=== PATIENT | male | born 1935 | race Caucasian/White ===

== ENCOUNTER → 2017-11-03 | Outpatient (CLI) | payer MEDICARE ==
--- NOTE | 2017-11-03 12:26 | REP ---
Chest two views HISTORY: Hypertension Comparison: None The lungs are clear. The cardiac silhouette is enlarged. The pulmonary vasculature is normal in appearance. The bony structure is intact. IMPRESSION: Cardiomegaly. Signed by Frandy Ferguson MD 11/03/2017 12:18 P
[2017-11-03 13:16] LABS: MEAN CORPUSCULAR HEMOGLOBIN 35.1 pg (27.0-33.0); MEAN CORPUSCULAR HGB CONC 32.3 g/dl (32.0-36.5); MEAN CORPUSCULAR VOLUME 108.9 fl (80.0-96.0); PLATELET COUNT, AUTOMATED 126 10^3/uL (150-450); RED CELL DISTRIBUTION WIDTH 14.2 % (11.5-14.5); WHITE BLOOD COUNT 2.5 10^3/uL (4.0-10.0)
[2017-11-03 13:51] LABS: ALBUMIN 4.1 GM/DL (3.2-5.2); ALBUMIN/GLOBULIN RATIO 1.41 (1.00-1.93); ALKALINE PHOSPHATASE 61 U/L (45-117); ALT/SGPT 33 U/L (12-78); ANION GAP 9 MEQ/L (8-16); AST/SGOT 20 U/L (7-37); BILIRUBIN,TOTAL 0.6 MG/DL (0.2-1.0); BLOOD UREA NITROGEN 15 MG/DL (7-18); CALCIUM LEVEL 8.5 MG/DL (8.8-10.2); CARBON DIOXIDE LEVEL 28 MEQ/L (21-32); CHLORIDE LEVEL 104 MEQ/L (98-107); CREATININE FOR GFR 0.81 MG/DL (0.70-1.30); GLOMERULAR FILTRATION RATE > 60.0 (>35); GLUCOSE, FASTING 86 MG/DL (83-110); POTASSIUM SERUM 4.3 MEQ/L (3.5-5.1); SODIUM LEVEL 141 MEQ/L (136-145)
== END ==
LOC: M SMT 11:15
PROVIDERS: ATTEND Internal Medicine Cardiovascular Disease
DX: I44.0 Atrioventricular block, first degree (principal); I25.10 Atherosclerotic heart disease of native coronary artery without angina pectoris; I10 Essential (primary) hypertension

== ENCOUNTER → 2017-12-08 | Outpatient (REF) | payer MEDICARE ==
[2017-12-08 20:49] LABS: HEMATOCRIT 35.4 % (42.0-52.0)
[2017-12-08 21:24] LABS: IMMUNOGLOBULIN G 878 MG/DL (681-1648); IMMUNOGLOBULIN M 39.8 MG/DL (40-230); TOTAL PROTEIN 7.5 GM/DL (6.4-8.2)
[2017-12-08 22:15] LABS: REASON FOR REVIEW COMPREHENSIVE REVIEW; SLIDE REVIEW Report; SOURCE PERIPHERAL SMEAR
[2017-12-09 10:51] LABS: ALBUMIN 4.67 GM/DL (3.29-5.55); ALBUMIN % 62.2 % (55.8-66.1); ALPHA-1-GLOBULIN % 4.6 % (2.9-4.9); ALPHA-1-GLOBULINS 0.35 GM/DL (0.17-0.41); ALPHA-2-GLOBULINS % 8.9 % (7.1-11.8); BETA-1-GLOBULINS % 6.6 % (4.7-7.2); BETA-2-GLOBULINS % 5.7 % (3.2-6.5)
[2017-12-09 10:52] LABS: ALPHA-2-GLOBULINS 0.67 GM/DL (0.42-0.99); BETA-2-GLOBULINS 0.43 GM/DL (0.19-0.55)
[2017-12-09 11:36] LABS: VITAMIN B12 LEVEL 716 PG/ML (247-911)
[2017-12-10 18:58] LABS: PRETREATED FOLATE FOR RBCFOL 13.9 NG/ML; RBC FOLATE 824.6 NG/ML (280-791)
[2017-12-13 00:06] LABS: METHYLMALONIC ACID 207 nmol/L (0-378)
[2017-12-13 00:06] LABS: FREE KAPPA LIGHT CHAINS SERUM 21.7 mg/L (3.3-19.4); FREE LAMBDA LIGHT CHAINS SERUM 17.7 mg/L (5.7-26.3); HOMOCYST(E)INE SERUM 13.1 umol/L (0.0-15.0); KAPPA/LAMBDA RATIO SERUM 1.23 (0.26-1.65)
== END ==
LOC: M LAB REF 19:11
DX: D61.9 Aplastic anemia, unspecified (principal)
CPT/HCPCS: 84165

== ENCOUNTER 2018-01-24 15:11 | Day surgery (SDC) | payer MEDICARE ==
[2018-01-24] MEDS: PANTOPRAZOLE 40MG TAB (PROTONIX) PO ×2 (09:00)
[~2018-01-24 15:11] MED LIST: **UNRESOLVED NON-FORMULARY MED ORDER XX
[2018-01-24] MEDS ORDERED: LIDOCAINE 1% MDV 20ML VIAL SQ ×2 (15:21)
[2018-01-24] MEDS ORDERED: fentaNYL 100 MCG/2 ML INJECTION (J3010) As Ordered ×2 (16:09)
[2018-01-24] MEDS ORDERED: LIDOCAINE 2% INJ 100 MG/5 ML SDV (FOR ANES.) As Ordered ×2 (16:09)
[2018-01-24] MEDS ORDERED: PROPOFOL 200 MG/20 ML VIAL As Ordered ×4 (16:09→17:16)
[2018-01-24] MEDS ORDERED: MIDAZOLAM INJ 2 MG/2 ML VIAL (J2250) As Ordered ×2 (16:09)
[2018-01-24] MEDS: LR 1,000 ML IV ×4 (16:10→20:48)
[2018-01-24] MEDS: LIDOCAINE 1% SDV INJ 30 ML VIAL As Ordered ×2 (17:13)
[2018-01-24] MEDS ORDERED: ONDANSETRON 4MG/2ML VIAL (J2405) As Ordered ×2 (17:16)
[2018-01-24] MEDS ORDERED: ONDANSETRON 4MG/2ML VIAL (J2405) IV ×2 (18:15)
[2018-01-24] MEDS ORDERED: ACETAMINOPH W/CODEINE #3 TAB UD As Ordered ×2 (18:23)
[2018-01-24] MEDS: ACETAMINOPH W/CODEINE #3 TAB UD PO ×4 (18:35→23:09)
[2018-01-24] MEDS ORDERED: ACETAMINOPHEN TAB 650MG DOSE (2X325MG) PO ×2 (18:45)
[2018-01-24] MEDS: ATORVASTATIN 20 MG TAB PO ×2 (21:02)
[2018-01-24] MEDS: DULoxetine 30 MG CAP (CYMBALTA) PO ×2 (21:02)
[2018-01-24] MEDS: SINEMET 25-100 MG TAB PO ×2 (21:03)
[2018-01-24] MEDS: DONEPEZIL 5 MG TAB PO ×2 (21:03)
[2018-01-24] MEDS: CARVedilol 6.25 MG TAB PO ×2 (21:05)
[2018-01-24] MEDS: LISINOPRIL 10 MG TAB PO ×2 (21:09)
[2018-01-24] MEDS: MEMANTINE 5MG TABLET (NAMENDA) PO ×2 (21:32)
[2018-01-25] MEDS ORDERED: SLF 3 ML SYR IV ×2
[2018-01-25] MEDS: CEFAZOLIN SOD 1 GM in APPROPRIATE DILUENT 1 EA IV ×3 (01:34→16:20)
[2018-01-25] MEDS: LEVOTHYROXINE 125MCG TABLET (0.125MG) PO ×2 (05:14)
[2018-01-25] MEDS: SLF 3 ML SYR IV ×4 (05:15→14:13)
[2018-01-25] MEDS: ASPIRIN 81 MG CHEW TABLET PO ×2 (08:55)
[2018-01-25] MEDS: amLODIPine 5 MG TAB PO ×2 (08:56)
[2018-01-25] MEDS: MEMANTINE 5MG TABLET (NAMENDA) PO ×2 (08:56)
[2018-01-25] MEDS: PANTOPRAZOLE 40MG TAB (PROTONIX) PO ×2 (08:56)
[2018-01-25] MEDS: CARVedilol 6.25 MG TAB PO ×2 (08:56)
[2018-01-25] MEDS: SINEMET 25-100 MG TAB PO ×4 (08:57→16:07)
[2018-01-25] MEDS: LISINOPRIL 10 MG TAB PO ×2 (08:57)
[2018-01-25] MEDS: DULoxetine 30 MG CAP (CYMBALTA) PO ×2 (08:57)
[2018-01-25] MEDS: oxyBUTYnin *DITROPAN XL* 5 MG TABCR PO ×2 (17:32)
== END 2018-01-25 18:37 | disposition home or self-care (01) ==
LOC: M SDC 15:11 → M PCU 19:00
DX: I49.5 Sick sinus syndrome (principal); I44.0 Atrioventricular block, first degree; I44.7 Left bundle-branch block, unspecified; I49.3 Ventricular premature depolarization; I25.10 Atherosclerotic heart disease of native coronary artery without angina pectoris; I11.9 Hypertensive heart disease without heart failure; I35.9 Nonrheumatic aortic valve disorder, unspecified; I34.0 Nonrheumatic mitral (valve) insufficiency; I27.81 Cor pulmonale (chronic); R94.31 Abnormal electrocardiogram [ECG] [EKG]; E03.9 Hypothyroidism, unspecified; K21.9 Gastro-esophageal reflux disease without esophagitis; D61.9 Aplastic anemia, unspecified; M12.9 Arthropathy, unspecified; R48.2 Apraxia; G20 Parkinson's disease; R06.83 Snoring; G47.33 Obstructive sleep apnea (adult) (pediatric); N40.1 Benign prostatic hyperplasia with lower urinary tract symptoms; R32 Unspecified urinary incontinence; T88.59XD Other complications of anesthesia, subsequent encounter; Z88.5 Allergy status to narcotic agent; Z88.8 Allergy status to other drugs, medicaments and biological substances; Z79.899 Other long term (current) drug therapy; Z79.82 Long term (current) use of aspirin; Z86.14 Personal history of Methicillin resistant Staphylococcus aureus infection; Z87.891 Personal history of nicotine dependence; Z95.5 Presence of coronary angioplasty implant and graft; Z96.653 Presence of artificial knee joint, bilateral
CPT/HCPCS: 33208

== ENCOUNTER 2019-03-02 11:50 | Inpatient (IN) | payer MEDICARE ==
[~2019-03-02] VITALS: Ht 162.6 cm; Wt 98.5 kg
[2019-03-02 11:50] VITALS: BP 130/93
[~2019-03-02 11:50] MED LIST changes: -**UNRESOLVED NON-FORMULARY MED ORDER XX; +ALFU10TA2 PO; +AMLO5TAB6 PO; +AMMO12CR7 TOP; +ASPI81TA26 PO; +ATOR1TAB21 PO; +CARB25TA9 PO; +CARV12.5 PO; +CARV6.25 PO; +COLA100C5 PO; +DICL1GEL3 TOP; +DONETAB6 PO; +DULO1CAP2 PO; +DULO1CAP3 PO; +LISI-1046 PO; +LISI10TA4 PO; +MEMA1TAB2 PO; +MULT1TAB10 PO; +OMEG100011 PO; +OXYB10TA PO; +PANT40TA3 PO; +PREG50CA PO; +ROPI0.5T PO; +SYNT125T PO
[2019-03-02] MEDS ORDERED: PREG50CA PO (13:50)
[2019-03-02] MEDS ORDERED: PRAM0.126 PO (13:51)
[2019-03-02] MEDS ORDERED: LISI-1046 PO (14:03)
[2019-03-02] MEDS ORDERED: DOCUSATE SODIUM 100 MG CAP PO PRN (14:30)
[2019-03-02 14:51] LABS: BASO % 0.1 % (0.0-1.0); EOS % 0.4 % (0.0-3.0); HEMATOCRIT 33.8 % (42.0-52.0); HEMOGLOBIN 10.4 g/dl (13.5-17.5); LYMPH # 2.2 10^3/uL (1.5-4.5); LYMPH % 29.8 % (24.0-44.0); MEAN CORPUSCULAR HEMOGLOBIN 36.2 pg (27.0-33.0); MEAN CORPUSCULAR HGB CONC 30.8 g/dl (32.0-36.5); MONO # 1.3 10^3/uL (0.0-0.8); MONO % 17.9 % (0.0-5.0); NEUTROPHILS # 3.7 10^3/uL (1.8-7.7); NEUTROPHILS % 50.2 % (36.0-66.0); RED BLOOD COUNT 2.87 10^6/uL (4.30-6.10); WHITE BLOOD COUNT 7.4 10^3/uL (4.0-10.0)
[2019-03-02 14:54] LABS: PLATELET COUNT, AUTOMATED 40 10^3/uL (150-450)
[2019-03-02 15:00] LABS: INR 2.45; PARTIAL THROMBOPLASTIN TIME 40.9 SECONDS (25.4-37.6); PROTHROMBIN TIME 27.1 SECONDS (12.1-14.4)
[2019-03-02 15:02] LABS: MEAN CORPUSCULAR VOLUME 117.8 fl (80.0-96.0); PLATELET COUNT, AUTOMATED 41 10^3/uL (150-450)
[2019-03-02 15:03] LABS: D-DIMER QUANT 2795.03 ng/ml (<500)
--- NOTE | 2019-03-02 15:04 | REP ---
Clinical: Shortness of breath. Comparison: 01/25/2018. Findings: Cardiomegaly is appreciated along with pulmonary vascular congestion/interstitial edema including cephalization, indistinct perihilar vasculature, increased interstitial markings, as well as perihilar to lower lobe opacities suggesting elements of atelectasis and layering effusions. No pneumothorax. Evidence for prior sternotomy, pacemaker and CABG remaining stable. Skeletal structures intact. Impression: Cardiomegaly with findings to suggest pulmonary vascular congestion and interstitial edema including bibasilar opacities and pleural effusions. Electronically Signed by Rashid Cook MD 03/02/2019 02:55 P
[2019-03-02 15:05] LABS: ANISOCYTOSIS 2+; OVALOCYTES 1+; TEAR DROP CELLS 1+
[2019-03-02 15:06] LABS: PLATELET ESTIMATE MARKED DECREASE (NORMAL)
[2019-03-02 15:20] VITALS: BP 132/74
[2019-03-02 15:30] LABS: ERYTHROCYTE SEDIMENTATION RATE 74 mm/hr (0-20)
[2019-03-02] MEDS ORDERED: VANCOMYCIN HCL 1,000 MG, VIAL MATE ADAPTER 1 EACH in D5W 250 ML IV ONE ×2 (15:45→20:00)
[2019-03-02] MEDS ORDERED: FUROSEMIDE 20 MG/2 ML VIAL (J1940) IV ONE (15:45)
--- NOTE | 2019-03-02 16:04 | ECGEPIP ---
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
[2019-03-02 16:18] LABS: FREE THYROXINE INDEX 1.9 % (1.4-3.8); THYROID STIMULATING HORMONE 9.65 uIU/ML (0.358-3.740); THYROXINE (T4) 5.7 UG/DL (4.5-12.0)
[2019-03-02] MEDS ORDERED: PILL CRUSHER/CUTTER 1 EACH XX PRN (16:45)
[2019-03-02 16:47] LABS: ALBUMIN 2.8 GM/DL (3.2-5.2); BILIRUBIN,TOTAL 1.1 MG/DL (0.2-1.0); C REACTIVE PROTEIN QUANTITATIV 11.8 MG/DL (0.00-0.30); CREATININE FOR GFR 1.36 MG/DL (0.70-1.30); GLOMERULAR FILTRATION RATE 53.1 (>35); MB/CK RELATIVE INDEX 5.32 (< OR =4); POTASSIUM SERUM 4.7 MEQ/L (3.5-5.1); TOTAL PROTEIN 7.2 GM/DL (6.4-8.2); TROPONIN I 0.13 NG/ML (< 0.10)
[2019-03-02] MEDS ORDERED: SINEMET 25-100 MG TAB PO SCH (17:00)
--- NOTE | 2019-03-02 17:09 | NUR ---
Pt presents with moderate-severe oropharyngeal phase dysphagia. Poor/slow bolus control, cough throughout exam, decreased oral ROM and strength. Unable to fully determine safest/least restrictive diet without instrumental. MD please consider modified barium swallow study (cookie swallow). Recommend: Puree solids and honey thick liquids. Thorough oral care before and after every meal or med pass. Addendum: 03/02/19 at 1712 by WILMAN TOLEDO [facility] Amended: Links added.
[2019-03-02 20:00] VITALS: BP 136/74
[2019-03-02] MEDS ORDERED: DULoxetine 30 MG CAP (CYMBALTA) PO SCH (21:00)
[2019-03-02] MEDS ORDERED: rOPINIRole 0.25 MG TAB(REQUIP) PO SCH (21:00)
[2019-03-02] MEDS ORDERED: PREGABALIN 50 MG CAP (LYRICA) PO SCH (21:00)
[2019-03-02] MEDS ORDERED: CARVedilol 12.5 MG TAB PO SCH (21:00)
[2019-03-02] MEDS ORDERED: LISINOPRIL *2.5 MG* TAB PO SCH (21:00)
[2019-03-02] MEDS ORDERED: ATORVASTATIN 20 MG TAB PO SCH (21:00)
[2019-03-02] MEDS ORDERED: MEMANTINE 5MG TABLET (NAMENDA) PO SCH (21:00)
[2019-03-02] MEDS ORDERED: PRAMIPEXOLE (MIRAPEX) 0.125 MG TAB PO SCH (21:00)
[2019-03-02] MEDS ORDERED: DONEPEZIL 5 MG TAB PO SCH (21:00)
[2019-03-02 21:30] LABS: PROLACTIN 6.2 NG/ML (2.1-17.7)
[2019-03-02 21:41] VITALS: BP 122/76
--- NOTE | 2019-03-02 21:44 | HPE ---
DATE OF ADMISSION: 03/02/2019 The patient is transferred from [facility] to [facility] due to pancytopenia at 's request for [facility]. CHIEF COMPLAINT: Generalized weakness. Found to have Methicillin-Susceptible Staphylococcus aureus (MSSA) bacteremia, rule out for endocarditis and had been treated with Nafcillin and Rifampin at the [facility] when he started developing severe pancytopenia. HISTORY OF PRESENT ILLNESS: This is an 83-year-old male with past medical history significant for advanced Parkinson's disease with expressive aphagia for the past 4 years, coronary artery disease, status post 4 vessel coronary artery bypass graft and angioplasty, multiple stent placement, non-ST segment elevation myocardial infarction (NSTEMI), dyslipidemia, septic arthritis, status post arthroplasty, hypothyroidism, cervical spine fusion, vasectomy, skin cancer removal and pacemaker implantation for sick sinus syndrome was in his usual state of health and living at home with his and usually able to walk with a walker until March 02, 2019 when the patient was unable to stand and walk at that time, otherwise called [facility] (EMS) which brought them to [facility] emergency room. At [facility], the patient was found to have a temperature of 104.5, systolic pressure in the 70s, was given rectal Tylenol and was diagnosed with sepsis and troponin leak. The patient's called 911 and the patient was taken to [facility] in [place], where he was found positive troponin, temperature of 104.5, sepsis from presumed aspiration pneumonia. The patient was then subsequently transferred to [facility] in [place] due to concerns of non-ST segment elevation myocardial infarction. At that time, the patient had a white count of 4.8, neutrophil count of 64, troponin was elevated to 5.3, with a proBNP of 98.48. Chest x-ray was suspicious for pneumonia versus congestive heart failure. 12-lead electrocardiogram (EKG) had no ST elevation. He was started on IV heparin, did receive a dose of Lasix and Rocephin and azithromycin. He was then subsequently transferred to [facility] for evaluation for acute coronary syndrome. The patient was felt to be suffering from staphylococcus aureus bacteremia with suspected troponin leak due to sepsis, as well as aspiration pneumonia. He underwent transesophageal echocardiogram (VIKAS) to rule out vegetation on 02/09/2019, which showed no evidence of vegetation of the valves in the pacemaker lead. Ejection fraction was noted to be 25% to 30%, with severe mitral aortic and tricuspid regurgitation. Transthoracic echocardiogram showed an ef1 of 20% to 25% with moderate aortic stenosis with TOMÁS 1.1 and mean gradient of 16 with moderate mitral and tricuspid insufficiency with RV pressure estimated at 46 mmHg. The patient has been nonverbal, but able to communicate with his by using yes or no questions and the patient putting a thumb's up or a thumb's down to answer. Subsequent blood culture after being started on Nafcillin and Rifampicin were negative. Per infectious disease at [facility], the patient is to continue with antibiotics until March 16, 2019 with weekly complete blood counts (CBCs), sedimentation rate and erythrocyte sedimentation rate. The patient was then transitioned to acute rehabilitation for strengthening and conditioning. According to the , acute rehabilitation physician had decreased the patient's medications due to increased obtundation. His Lyrica in the evening was discontinued and since the patient was on Mirapex and Ropinirole, Ropinirole was discontinued. The patient was much more lethargic and less responsive, therefore, the rehabilitation physician has resumed the Ropinirole and discontinued the Mirapex. Due to worsening pancytopenia, the patient's had requested the patient to be transferred from acute rehabilitation facility in [place] to [facility] for further evaluation. She has noted that his mentation has suffered and he is less responsive, hoping to get a neurological evaluation at [facility] for his pancytopenia. She is requesting a hematology work up and referral while at the [place] rehabilitation facility. The patient's denied any recent fevers. Swallow evaluation has been done initially with mechanical soft and honey thickened, but lately, the patient is tolerating pudding thick and puree diet with clear water. PAST MEDICAL HISTORY: Parkinson's disease, advanced expressive aphagia for four years, coronary artery bypass graft (CABG) status post four vessel coronary artery bypass graft (CABG) and angioplasty, non-ST segment elevation myocardial infarction (NSTEMI), history of dyslipidemia, septic arthritis, status post arthroplasty, sick sinus syndrome requiring pacemaker, hypothyroidism. PAST SURGICAL HISTORY: Four vessel coronary artery bypass graft (CABG), angioplasty, left cataract surgery, bilateral total knee replacements, cervical spine fusion, vasectomy, skin cancer removal, pacemaker implantation due to sick sinus syndrome done by Dr. Monteiro. SOCIAL HISTORY: lives with . He uses a walker. Usually to ambulate. Recently, has been much more debilitated. The patient used to smoke pipe, quit about 30 years ago. 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 The patient is DO NOT INTUBATE, DO NOT RESUSCITATE. He previously used to drink wine with dinner. No recreational drug use. FAMILY HISTORY: Mother with brain aneurysm. Brother age 85 with occupational induced chronic obstructive pulmonary disease (COPD). REVIEW OF SYSTEMS: Could not be obtained as the patient is nonverbal. The patient's provided much of the history, presented in the history of present illness. 12-point system unable to be obtained at this time. PHYSICAL EXAMINATION: Temperature is 95.6, pulse is 67, respiratory rate 28, blood pressure 130/93, 100% on pulse oximetry on room air. GENERAL: The patient is nonverbal. He is following commands. Squeezes the 's hand to answer yes or no. Pupils are round, reactive to light accommodation. Extraocular muscles are intact. No oral thrush. Moist mucous membranes. No jugular venous distension or thyromegaly or cervical lymphadenopathy. Anicteric sclerae. No jaundice. HEART: S1, S2 with a left sternal border systolic ejection murmur. Hyperdynamic impulse of the apex. LUNGS: Fair and equal bilaterally. No wheezing, rales. Diminished breath sounds. GASTROINTESTINAL (GI): Soft, nontender, nondistended. Positive bowel sounds in all four quadrants. EXTREMITIES: Capillary refill less than 3 seconds. No calf tenderness. No pitting edema bilaterally. Cool extremities, but pink in color. CENTRAL NERVOUS SYSTEM: The patient is nonverbal. He is moving all of his extremities. He is able to follow commands. He has some rigidity with supination. Electrocardiogram (EKG) is pending. Complete blood count (CBC), metabolic panel, liver function tests, cardiac markers, BNP are all pending. Arterial blood gas is pending. ASSESSMENT AND PLAN: This 83-year-old male presented to [facility] per 's request due to ongoing pancytopenia, thought to be secondary to rifampin and Nafcillin being given for Methicillin-Susceptible Staphylococcus aureus (MSSA) bacteremia at the [place] acute rehabilitation. The patient had been in his usual state of health on January 30, 2019 when he was found to have extreme debility, difficulty ambulating with positive Methicillin-Susceptible Staphylococcus aureus (MSSA) in the blood culture, underwent transesophageal echocardiogram (VIKAS), which was negative for endocarditis and was subsequently transferred to acute rehabilitation after being evaluated for positive troponins thought to be secondary to sepsis and possible aspiration pneumonia. The patient is being admitted in inpatient for the following issues: 1. Pancytopenia thought to be secondary to Ancef and rifampin. Will check a peripheral blood smear, check a heparin-induced thrombocytopenia panel for low platelets, avoid heparin products. Compression stockings for deep vein thrombosis (DVT) prophylaxis. Consult hematology/oncology. May need bone marrow biopsy if not due to have the antibiotics. Defer to infectious disease for antibiotic changes. 2. Methicillin-Susceptible Staphylococcus aureus (MSSA) bacteremia of unknown source. Thought initially to be due to aspiration pneumonia. However, culture results are still being requested. At this time, will repeat the chest x-ray, 2-D echocardiogram, as well as complete blood count (CBC), metabolic panel, ESB, C-reactive protein (CRP) and blood cultures. Transesophageal echocardiogram was negative for endocarditis. Monitor complete blood count (CBC), C-reactive protein (CRP) and sedimentation rate. Depending on choice of antibiotics, will monitor complete blood count (CBC) to determine the need for Neupogen if white count is less than 500. The patient currently is afebrile, but is hypothermic. 3. Advanced Parkinson's disease. The patient usually sees Dr. Walters from [facility]. Had acute rehabilitation. [facility] physician has changed his medications according to the patient's . I have consulted Dr. Jama, neurologist insulation and flooring assembler this evening to adjust the patient's medications due to worsening mental status changes. The patient is nonverbal at baseline. Mental status changes most likely due to acute infection and sepsis. 4. History of abnormal cardiac markers with possible myocardial infarction (MS) with history of atherosclerotic disease of elim ira coronary vessels. Coronary artery bypass graft (CABG) with multivessel with four vessel coronary artery bypass graft. The patient had been treated supportively with intravenous heparin drip at [facility]. The patient did not receive any additional stenting. Will obtain cardiac markers and place the patient on telemetry. Repeat echocardiogram. He has a known history of ischemic cardiomyopathy. Ejection fraction of 20% to 25%. He is currently DO NOT RESUSCITATE with a healthcare proxy being the . 5. Sick sinus syndrome, status post pacer with history of Methicillin-Susceptible Staphylococcus aureus (MSSA), the patient currently has a DO NOT RESUSCITATE. He is currently being treated with for weeks of IV antibiotics from January 30 to March 16. 6. Aspiration pneumonia. Refer to infectious disease for antibiotic choice. The patient has been fully treated for two weeks at [facility]. Repeat chest x-ray and repeat the swallow evaluation. 7. Expressive aphasia for the past four years due to advanced Parkinson's disease. Magnetic Resonance Imaging (MRI) of the brain once the patient is stable to consultation. 8. Hypothyroidism. Resume home Synthroid. 9. Dyslipidemia. Resume statin. 10. MDS. Resumed home medications. 11. History of congestive heart failure, does not appear to be decompensated at this time. He appears euvolemic. Strict input and output, daily weights and fluid restriction. Resume on home medications.
--- NOTE | 2019-03-02 23:03 | PHACANCOPD ---
PHARMACY VANCOMYCIN DOSING Pt Demographics Demographics Patient Age:83 , Weight:98.500 , Gender: male Adjusted Body Weight Events Past 24 Hours Events Past 24 Hours: NO: Dialysis, Diuretic Therapy, Change in CrCl, Fever, Elevation in WBC, Pending Diagnostics, Pending Procedures, Other Vancomycin Vancomycin Target Ranges: 10-20 mcg/ml Vancomycin Load Y/N: Yes Load Dose Date Time Vancomycin Load Dose: 2GM Date: 03/02/19 Time: 16:30- 2030 Vancomycin Dose Date: 03/03/19. Current Vancomycin Dose: [VANCO 1GM IV Q12H (starting at 8AM] Intermittent Dosing?: No Labs Labs Laboratory Tests 03/02/19 14:29 Red Blood Count 2.87 L, Mean Corpuscular Volume 117.8 H, Mean Corpuscular Hemoglobin 36.2 H, Mean Corpuscular Hemoglobin Concent 30.8 L, Red Cell Distribution Width 21.2 H, Neutrophils (%) (Auto) 50.2, Lymphocytes (%) (Auto) 29.8, Monocytes (%) (Auto) 17.9 H, Eosinophils (%) (Auto) 0.4, Basophils (%) (Auto) 0.1, Neutrophils # (Auto) 3.7, Lymphocytes # (Auto) 2.2, Monocytes # (Auto) 1.3 H, Eosinophils # (Auto) 0.0, Basophils # (Auto) 0.0 03/02/19 14:30 Calcium Level 8.0 L, Aspartate Amino Transf (AST/SGOT) 255 H, Alanine Aminotransferase (ALT/SGPT) 354 H, Total Creatine Kinase 79, Alkaline Phospha tase 171 H, Total Bilirubin 1.1 H, Total Protein 7.2, Albumin 2.8 L Micro Microbiology 03/02/19 Blood Culture, Received Pending 03/02/19 Blood Culture, Received Pending 03/02/19 Blood Culture, Received Pending Creatinine Clearance Date:03/02/19. Creatinine Clearance: [>50ml/min]. Assessment and Plan Maintaining Current Dose?: Yes Reason for dose change: No Dose Change Pharmacist Note Pharmacist Note Date: 03/02/19. PharmD note: VANCO LOAD DOSE OF 2GM ACHIEVED FROM 16:30-20:30HRS WE WILL CONTINUE WITH VANCO 1GM IV Q12H FOR NOW WHILE KEEPING A CLOSE EYE ON HIS RF. WE WILL ORDER A VANCO TROUGH WHEN HE IS AT STEADY STATE. KRISHNA DUNN PHARMACY Mar 02, 2019 23:03
[2019-03-03] VITALS: BP 98/64
--- NOTE | 2019-03-03 00:32 | CR ---
DATE OF CONSULTATION: 03/02/2019 INFECTIOUS DISEASE CONSULTATION Asked to consult by Dr. Eng for followup on a patient with Staphylococcus aureus bacteremia, methicillin-sensitive Staphylococcus aureus (MSSA) diagnosed a month ago in [facility] in [place]. HISTORY OF PRESENT ILLNESS: Mr. Walton is an 83-year-old gentleman who was admitted to [facility] in [place] with a fever of 105 about a month ago. He was found to have Staphylococus aureus bacteremia, MSSA, and was treated with IV antibiotics for a couple weeks. According to , he was on cefazolin every 8 hours and rifampin. He was then transferred with a peripherally inserted central catheter (PICC) line to [facility] for [facility] and was progressively doing better until 2 days prior to admission when she had noticed that he was less active, less able to do his baseline activities, usually able to do it and was having some attacks of staring without responding to her. He also started to become thrombocytopenic and therefore there was concern of medication side effects and rifampin was discontinued initially, then cefazolin. The patient has not had any recent fevers or chills. No nausea, vomiting or diarrhea. No abdominal pain that he has complained of. Transesophageal echocardiogram was done on 02/09/2019 at [facility], which showed no evidence of vegetation of the valves or the pacemaker lead. Ejection fraction was noted to be 25-30% with severe aortic and tricuspid regurgitation. Transthoracic echocardiogram showed an ejection fraction of 25% with moderate aortic stenosis. The patient was supposed to continue IV antibiotics until 03/16/2018, which would be 6 weeks from negative cultures. Because of the mental status changes, the weakness and the thrombocytopenia, his asked for him to be transferred to [facility] for an acute hospitalization as she wanted him to be closer to his primary care providers, including Dr. Monteiro from cardiology and hematology-oncology who manage his myelodysplastic disorder. PAST MEDICAL HISTORY: His past medical history is significant for Parkinson's disease with expressive aphasia for which he sees Dr. Walters, coronary artery disease status post CABG and angioplasty, non-ST elevation myocardial infarction (DE), follows up with Dr. Monteiro, dyslipidemia, history of methicillin-resistant Staphylococcus aureus (MRSA) bilateral prosthetic joint infection in 2008 after he had bilateral total knee replacement done for which he required 3 months of IV vancomycin, following which he had new total prosthesis placed a year later. Sick sinus syndrome, hypothyroidism. PAST SURGICAL HISTORY: CABG, left cataract surgery, bilateral total knee replacement in 2009, followed by bilateral infections of his knee prosthesis and removal with cement spacer placed and replacement revision arthroplasty, skin cancer, pacemaker implantation in [address] Monteiro for sick sinus syndrome. SOCIAL HISTORY: He is , lives with his . He uses a walker at home. He is able to ambulate and verbalizes with his pretty decently. He used to smoke a pipe, quit 30 years ago. He is retired. He is DO NOT INTUBATE/DO NOT RESUSCITATE (DNI/DNR). FAMILY HISTORY: Mother of a brain aneurysm, brother at age of 85, COPD. REVIEW OF SYSTEMS: He is having worsening mental status, difficulty verbalizing, does not seem to be in any pain. No nausea, vomiting or diarrhea. No cough. Increasing edema and shortness of breath. PHYSICAL EXAM: Temperature is 95.6, pulse 67, respirations 28, blood pressure 130/93, oxygen saturation (O2 sat) 100% on room air. General appearance: The patient did not verbalize anything. He did stutter some muffled words. Heart: Normal S1, S2 with a systolic ejection murmur best heard at the left upper sternal border. No rubs or gallops. Lungs: Diminished breath sounds at the bases. No wheezes or rhonchi. Abdomen: Obese, soft, nontender. No hepatosplenomegaly. Genitourinary (): Normal for age. Zhou catheter in place with yellow urine. Extremities: +1 pitting edema bilaterally. He has bilateral knee replacement scars, well healed. He has another incision of the right leg anteriorly and posteriorly, site of previous infection. Neurologic Exam: Could not be examined. The patient has a blank stare. He is stiff when trying to move to be examined. LABORATORY DATA: White count 7.4, hemoglobin 10.4, hematocrit 33.8, platelets 41, 50% neutrophils, 29% lymphocytes, 18% monocytes. ESR 74. Sodium 143, potassium 4.7, chloride 115, bicarbonate 16, BUN 74, creatinine 1.36, glucose 87, lactic acid 4, repeat was 4.9, AST 255, ALT 354, alkaline phosphatase 171, calcium 8, bilirubin 1.1, TSH 9.65, CRP 11.8, BNP 19,516, albumin 2.8, free T4 of 1.9, T4 of 5.7, prolactin 6.2. Blood cultures, three sets, were ordered at 1348 hours, 1429 hours and 1918 hours; pending. MEDICATIONS: Aspirin 81 mg by mouth daily, duloxetine 30 mg daily, multivitamin one tablet daily, Protonix 40 mg by mouth daily, vancomycin 1 gram IV every 12 hours, levothyroxine 125 mcg by mouth daily, atorvastatin 20 mg by mouth nightly, Coreg 12.5 mg by mouth twice a day, duloxetine 60 mg by mouth nightly, Mirapex 0.125 mg by mouth twice a day, Requip 0.5 mg by mouth twice a day, Namenda 10 mg by mouth twice a day, Aricept 10 mg by mouth nightly, lisinopril 2.5 mg by mouth twice a day, levadopa two tablets at 0800 hours, 1100 hours, 1400 hours and 1700 hours (8, 11, 14 and 17) and Colace 100 mg by mouth as needed. Chest x-ray, PA and lateral, shows cardiomegaly with pulmonary vascular congestion, interstitial edema including bibasilar opacities and pleural effusions. Electrocardiogram showed electronic ventricular pacer, sinus rhythm, left atrial enlargement. IMPRESSION: This is an 83-year-old gentleman who was admitted a month ago to [facility], with Staphylococcus aureus bacteremia, was being treated with IV cefazolin and rifampin, has developed abnormal liver function tests and thrombocytopenia with worsening mental status. He has deteriorated clinically and physically; he has not been able to do as much with mobility. He most likely has a drug reaction causing his thrombocytopenia, whether related to beta-lactams or rifampin.; these have both been held. He has been afebrile and clinically does not look septic, but there is concern for his lactic acidosis. The patient seems to have congestive heart failure. His BNP is elevated. He has pitting edema, and he has increasing shortness of breath. PLAN: As far as thrombocytopenia and abnormal liver function tests are concerned, possibly related to rifampin versus beta-lactam, I would suggest discontinuing both and finishing his treatment with vancomycin for 2 weeks until 03/16/2019. I am concerned that he may not need that dose of vancomycin 1 gram every 12 hours to him based on his age/ Creatininie. Suggest diuresis. His BMP is elevated. He has pitting edema. He was given 20 mg of IV Lasix times one dose but nothing since then. Obtain echocardiogram to follow up on possibility of endocarditis even though transesophageal echocardiogram (VIKAS) was negative. He could have pacer lead infection that has been missed on VIKAS initially. Zhou catheter was recently placed due to urinary retention during this hospitalization. I am not sure if the patient has had a trial for removal, but if not, the patient should be considered for trial of removal of catheter as he is at risk of recurrent urinary tract infection. Consider consultation with Dr. Monteiro who has been his filter cloth maker for many years to help with management of congestive heart failure. Consult with hematology who have seen him for his mild dysplastic syndrome, although this is not his myelodysplasia as usually he has leukopenia and not thrombocytopenia. This is medication side effect. Obtain abdominal ultrasound, as his liver function tests are elevated, to rule out any possibility of seeding to the liver from bacteremia. Blood cultures times three sets were obtained and will be followed up Thank you for consultation. NEVA
--- NOTE | 2019-03-03 03:14 | IPNPDOC ---
Date Seen The patient was seen on 03/03/19. Progress Note INTERIM PROGRESS NOTE: Was called my patient's nurse around 0300 regarding patient's low BP (80s systolic by doppler) that did not improve with albumin infusion and reported fluid overload with labored breathing and cough. Dr. Juárez and I went to the bedside to asses the patient. Physical exam: Temp 96.6, BP 80 systolic by doppler, HR 78, O2 95% RA GEN: laying in breath, labored breathing, asleep Heart: Normal S1/S2 with systolic ejection murmur in LUSB Lungs: Diminished breath sounds in all garcia. Crackles are heard from the bases up to middle lobe bilaterally Extremities: 3+ pitting edema in legs bilaterally, LUE with 2+ pitting edema, RUE non-edematous with PICC line in place Abd: soft, +BS, nontender The patient's was by the bedside. We had a discussion regarding the patien t's prognosis, and escalation of care was offered, including transfer of the patient to the ICU and placement of a central like for vasopressor therapy. The patient's decided to pursue comfort measures at this time. It was decided that there would be no escalation of care and the patient would be continually monitored with comfort measures in place. The patient's expressed understanding. VS, I&O, 24H, Fishbone Vital Signs/I&O Vital Signs Date Time Temp Pulse Resp B/P (MAP) Pulse Ox O2 Delivery O2 Flow Rate FiO2 03/03/19 00:00 96.6 75 28 98/64 (75) 95 I&O- Last 24 Hours up to 6 AM 03/03/19 06:00 Intake Total 270 ml Output Total 675 ml Balance -405 ml Laboratory Data 24H LABS Laboratory Tests 2 03/02/19 14:29: Immature Granulocyte % (Auto) 1.6, White Blood Count 7.4, Red Blood Count 2.87L, Hemoglobin 10.4L, Hematocrit 33.8L, Mean Corpuscular Volume 117.8H, Mean Corpuscular Hemoglobin 36.2H, Mean Corpuscular Hemoglobin Concent 30.8L, Red Cell Distribution Width 21.2H, Platelet Count 41L, Neutrophils (%) (Auto) 50.2, Lymphocytes (%) (Auto) 29.8, Monocytes (%) (Auto) 17.9H, Eosinophils (%) (Auto) 0.4, Basophils (%) (Auto) 0.1, Neutrophils # (Auto) 3.7, Lymphocytes # (Auto) 2.2, Monocytes # (Auto) 1.3H, Eosinophils # (Auto) 0.0, Basophils # (Auto) 0.0, Nucleated Red Blood Cells % (auto) 1.8H, Differential Slide Review Report, Platelet Estimate MARKED DECREASE, Immature Platelet Fraction 9.3, Anisocytosis 2+, Macrocytosis 3+, Tear Drop Cells 1+, Ovalocytes 1+, Peripheral Blood Smear Path Consult PERIPHERAL SMEAR, Erythrocyte Sedimentation Rate 74H, Prothrombin Time 27.1H, Prothromb Time International Ratio 2.45, Activated Partial Thromboplast Time 40.9H, Fibrinogen 522H, D-Dimer, Quantitative 2795.03H 03/02/19 14:30: Anion Gap 12, Glomerular Filtration Rate 53.1, Lactic Acid Level 4.0*H, Blood Urea Nitrogen 74H, Creatinine 1.36H, Sodium Level 143, Potassium Level 4.7, Chloride Level 115H, Carbon Dioxide Level 16L, Calcium Level 8.0L, Aspartate Amino Transf (AST/SGOT) 255H, Alanine Aminotransferase (ALT/SGPT) 354H, Total Creatine Kinase 79, Alkaline Phosphatase 171H, Total Bilirubin 1.1H, Total Protein 7.2, Albumin 2.8L, Creatine Kinase MB 4.0H, Creatine Kinase MB Relative Index 5.32H, Troponin I 0.13H, C-Reactive Protein, Quantitative 11.80H, BJ-Onv-Z-Type Natriuretic Peptide 36339Q, Albumin/Globulin Ratio 0.64L, Thyroid Stimulating Hormone (TSH) 9.650H, Free Thyroxine Index 1.9, Thyroxine (T4) 5.7, Triiodothyronine (T3) Uptake 34, Prolactin 6.2 03/02/19 19:18: Lactic Acid Followup at 4 Hours 4.9*H 03/02/19 21:46: Urine Color YELLOW, Urine Appearance HAZY, Urine pH 5.0, Urine Specific [place] 1.010, Urine Protein 1+H, Urine Glucose (UA) NEGATIVE, Urine Ketones NEGATIVE, Urine Blood 3+H, Urine Nitrite NEGATIVE, Urine Bilirubin NEGATIVE, Urine Urobilinogen 0.2, Urine Leukocyte Esterase NEGATIVE, Urine WBC (Auto) 1, Urine RBC (Auto) 54H, Urine Hyaline Casts (Auto) 23, Urine Bacteria (Auto) 1+H, Urine Squamous Epithelial Cells 0, Urine Amorphous Sediment SMALLH, Urine Mucus (Auto) SMALL, Urine Sperm (Auto) 03/03/19 00:18: Lactic Acid Level 2.7*H CBC/BMP Laboratory Tests 03/02/19 14:29 Red Blood Count 2.87 L, Mean Corpuscular Volume 117.8 H, Mean Corpuscular Hemoglobin 36.2 H, Mean Corpuscular Hemoglobin Concent 30.8 L, Red Cell Distribution Width 21.2 H, Neutrophils (%) (Auto) 50.2, Lymphocytes (%) (Auto) 29.8, Monocytes (%) (Auto) 17.9 H, Eosinophils (%) (Auto) 0.4, Basophils (%) (Auto) 0.1, Neutrophils # (Auto) 3.7, Lymphocytes # (Auto) 2.2, Monocytes # (Auto) 1.3 H, Eosinophils # (Auto) 0.0, Basophils # (Auto) 0.0 03/02/19 14:30 Calcium Level 8.0 L, Aspartate Amino Transf (AST/SGOT) 255 H, Alanine Aminotransferase (ALT/SGPT) 354 H, Total Creatine Kinase 79, Alkaline Phosphatase 171 H, Total Bilirubin 1.1 H, Total Protein 7.2, Albumin 2.8 L Microbiology Microbiology 03/02/19 Blood Culture, Received Pending 03/02/19 Blood Culture, Received Pending 03/02/19 Blood Culture, Received Pending GME ATTESTATION GME ATTESTATION My faculty preceptor for this patient encounter was physically present during the encounter and was fully available. All aspects of the patient interview, examination, medical decision making process, and medical care plan development were reviewed and approved by the faculty preceptor. The faculty preceptor is aware and concurs with the plan as stated in the body of this note and will attest to such by his/her cosignature. MILEY SHAFER MD Mar 03, 2019 03:14
[2019-03-03 04:00] VITALS: BP_SYST 96
[2019-03-03 05:50] LABS: BASO % 0.1 % (0.0-1.0); EOS % 0.2 % (0.0-3.0); HEMATOCRIT 27.2 % (42.0-52.0); HEMOGLOBIN 8.5 g/dl (13.5-17.5); LYMPH # 0.9 10^3/uL (1.5-4.5); LYMPH % 7.4 % (24.0-44.0); MEAN CORPUSCULAR HEMOGLOBIN 36.2 pg (27.0-33.0); MEAN CORPUSCULAR HGB CONC 31.3 g/dl (32.0-36.5); MEAN CORPUSCULAR VOLUME 115.7 fl (80.0-96.0); MONO # 1.5 10^3/uL (0.0-0.8); MONO % 12.9 % (0.0-5.0); NEUTROPHILS # 9.3 10^3/uL (1.8-7.7); PLATELET COUNT, AUTOMATED 35 10^3/uL (150-450); RED BLOOD COUNT 2.35 10^6/uL (4.30-6.10)
[2019-03-03] MEDS ORDERED: LEVOTHYROXINE 125MCG TABLET (0.125MG) PO SCH (06:00)
[2019-03-03 06:11] LABS: CALCIUM LEVEL 7.5 MG/DL (8.8-10.2); CREATININE FOR GFR 1.32 MG/DL (0.70-1.30); POTASSIUM SERUM 4.1 MEQ/L (3.5-5.1)
[2019-03-03 07:39] LABS: VANCOMYCIN RANDOM 23.4 UG/ML
[2019-03-03 08:00] VITALS: BP 100/56
[2019-03-03] MEDS ORDERED: VANCOMYCIN HCL 1,000 MG, VIAL MATE ADAPTER 1 EACH in D5W 250 ML IV SCH ×2 (08:00→18:00)
[2019-03-03] MEDS ORDERED: SCOPOLAMINE 1MG TRANSDERMAL PATCH TOP PRN (08:15)
[2019-03-03] MEDS ORDERED: ONDANSETRON 4MG/2ML VIAL (J2405) IV PRN (08:15)
--- NOTE | 2019-03-03 08:38 | REP ---
CT Head without contrast HISTORY: Altered mental status COMPARISON: None Areas of decreased attenuation are present in the periventricular white matter. This represents small-vessel ischemic disease. There is no intraparenchymal hemorrhage, acute infarct, mass or midline shift. The ventricular system and cortical sulci are dilated consistent with moderate volume loss. There is no extra cerebral collection. There is no fracture. The visualized sinuses are clear. IMPRESSION: 1. Small vessel ischemic disease. 2. Moderate volume loss. Electronically Signed by Frandy Ferguson MD 03/03/2019 08:30 A
--- NOTE | 2019-03-03 08:42 | REP ---
Portable chest x-ray: Single view. History: Short of breath. Comparison study: March 02, 2019. Findings: A right-sided PICC line is again seen. A bipolar pacemaker is again noted in the enlarged heart via the left side. Median sternotomy wires and mediastinal clips are seen. Hazy opacity is noted in the bases consistent with small bilateral effusions. Pulmonary vascular congestion persists. There are coarse linear opacities in the perihilar regions bilaterally consistent with atelectasis. These are unchanged from yesterday's radiograph. No new infiltrate. Interstitial markings are somewhat increased diffusely as before. Electronically Signed by Hima Thompson MD 03/03/2019 08:34 A
[2019-03-03] MEDS ORDERED: MULTIVITAMINS/MINERALS THERAP 1 TAB PO SCH (09:00)
[2019-03-03] MEDS ORDERED: PREGABALIN 50 MG CAP (LYRICA) PO SCH (09:00)
[2019-03-03] MEDS ORDERED: PANTOPRAZOLE 40MG TAB (PROTONIX) PO SCH (09:00)
[2019-03-03] MEDS ORDERED: DULoxetine 30 MG CAP (CYMBALTA) PO SCH (09:00)
[2019-03-03] MEDS ORDERED: ASPIRIN 81 MG ENTERIC TAB PO SCH (09:00)
--- NOTE | 2019-03-03 12:21 | IPNPDOC ---
Date Seen The patient was seen on 03/03/19. Progress Note SUBJECTIVE: Pt developed worsening respiratory distress, hypotension, and lactic acidosis yesterday. CXR: CHF. Due to hypotension, vasopressor and lasix diuresis discussed with the last night and transfer to icu for mgt of decompensated CHF, systolic dysfunction in the setting of sepsis, and moderate . Per the , "My was a very active man, before all this. He would not want this." She requested to pursue COMFORT MEASURES ONLY , and for all active interventions to be discontinued according to the pt's prior wishes. PHYSICAL EXAMINATION: VITALS PLS SEE BELOW GENERAL: The patient is nonverbal. distressed with use of accessory respiratory muscles. JVD HEART: S1, S2 with a left sternal border systolic ejection murmur. Hyperdynamic impulse of the apex. S3 LUNGS:diminished bibasilar rales GASTROINTESTINAL (GI): Soft, nontender, nondistended. Positive bowel sounds in all four quadrants. EXTREMITIES: Capillary refill less than 3 seconds. No calf tenderness. anasarca CENTRAL NERVOUS SYSTEM: The patient is nonverbal. LABORATORY DATA, IMAGING STUDIES, MICROBIOLOGY: PLS SEE BELOW ASSESSMENT AND PLAN: This is an 83-year-old male with past medical history significant for advanced Parkinson's disease with expressive aphagia for the past 4 years, coronary artery disease, status post 4 vessel coronary artery bypass graft and angioplasty, multiple stent placement, non-ST segment elevation myocardial infarction (NSTEMI), dyslipidemia, septic arthritis, status post arthroplasty, hypothyroidism, cervical spine fusion, vasectomy, skin cancer removal and pacemaker implantation for sick sinus syndrome was in his usual state of health and living at home with his and usually able to walk with a walker until March 02, 2019 when the patient was unable to stand and walk at that time, otherwise called [facility] (EM[facility]) which brought them to [place] emergency room. At [place], the patient was found to have a temperature of 104.5, systolic pressure in the 70s, was given rectal Tylenol and was diagnosed with sepsis and troponin leak. The patient's called 911 and the patient was taken to [facility] in [place], where he was found positive troponin, temperature of 104.5, sepsis from presumed aspiration pneumonia. The patient was then subsequently transferred to [facility] in [place] due to concerns of non-ST segment elevation myocardial infarction. At that time, the patient had a white count of 4.8, neutrophil count of 64, troponin was elevated to 5.3, with a proBNP of 98.48. Chest x-ray was suspicious for pneumonia versus congestive heart failure. 12-lead electrocardiogram (EKG) had no ST elevation. He was started on IV heparin, did receive a dose of Lasix and Rocephin and azithromycin. He was then subsequently transferred to [facility] for evaluation for acute coronary syndrome. The patient was felt to be suffering from staphylococcus aureus bacteremia with suspected troponin leak due to sepsis, as well as aspiration pneumonia. He underwent transesophageal echocardiogram (VIKAS) to rule out vegetation on 02/09/2019, which showed no evidence of vegetation of the valves in the pacemaker lead. Ejection fraction was noted to be 25% to 30%, with severe mitral aortic and tricuspid regurgitation. Transthoracic echocardiogram showed an ef1 of 20% to 25% with moderate aortic stenosis with TOMÁS 1.1 and mean gradient of 16 with moderate mitral and tricuspid insufficiency with RV pressure estimated at 46 mmHg. The patient has been nonverbal, but able to communicate with his by using yes or no questions and the patient putting a thumb's up or a thumb's down to answer. Subsequent blood culture after being started on Nafcillin and Rifampin were negative. Per infectious disease at [place], the patient is to continue with IV cefazolin q8hrs until March 16, 2019 with weekly complete blood counts (CBCs), sedimentation rate and erythrocyte sedimentation rate. The patient was then transitioned to acute rehabilitation for strengthening and conditioning. According to the , acute rehabilitation physician had decreased the patient's medications due to increased obtundation. His Lyrica in the evening was discontinued and since the patient was on Mirapex and Ropinirole, Ropinirole was discontinued. The patient was much more lethargic and less responsive, therefore, the rehabilitation physician has resumed the Ropinirole and discontinued the Mirapex. Due to worsening pancytopenia, the patient's had requested the patient to be transferred from acute rehabilitation facility in [place] to for further evaluation. She has noted that his mentation has suffered and he is less responsive, hoping to get a neurological evaluation at [facility] for his pancytopenia. She is requesting a hematology work up and referral while at the [facility]. The patient's denied any recent fevers. Swallow evaluation has been done initially with mechanical soft and honey thickened, but lately, the patient is tolerating pudding thick and puree diet with clear water. Acute decompensated Systolic CHF, with hypotension in the setting of hypothermia, sepsis from known h/o MSSA bacteremia and recent aspiration pneumonia. Pt developed worsening respiratory distress, hypotension, and lactic acidosis yesterday. CXR: CHF. Due to hypotension, vasopressor and lasix diuresis discussed with the last night and transfer to icu for mgt of decompensated CHF, systolic dysfunction in the setting of sepsis, and moderate . Per the , "My was a very active man, before all this. He would not want this." She requested to pursue COMFORT MEASURES ONLY , and for all active interventions to be discontinued according to the pt's prior wishes. Per the , "My was a very active man, before all this. He would not want this." She requested to pursue COMFORT MEASURES ONLY , and for all active interventions to be discontinued according to the pt's prior wishes. Thrombocytopenia: with no signs of acute bleeding. thought to be due to antibiotics for MSSA bacteremia. Will check a DIC panel, peripheral blood smear, heparin-induced thrombocytopenia panel for low platelets, avoid heparin products. Compression stockings for deep vein thrombosis (DVT) prophylaxis. Methicillin-Susceptible Staphylococcus aureus (MSSA) bacteremia of unknown source. Thought initially to be due to aspiration pneumonia. However, culture results are still being requested. chest x-ray b/l pulmnary vascular congestion 2-D echocardiogram ordered, as well as complete blood count (CBC), metabolic panel, ESR, C-reactive protein (CRP) and blood cultures. Transesophageal echocardiogram was negative for endocarditis. 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 Advanced Parkinson's disease. The patient usually sees Dr. Walters from [facility]. Had acute rehabilitation. PMR physician has changed his medications according to the patient's . I have consulted Dr. Jama, neurologist personal injury paralegal to adjust the patient's medications due to worsening mental status changes. The patient is nonverbal at baseline. Mental status changes most likely due to acute infection and sepsis. Per the , "My was a very active man, before all this. He would not want this." She requested to pursue COMFORT MEASURES ONLY , and for all active interventions to be discontinued according to the pt's prior wishes. History of abnormal cardiac markers with history of atherosclerotic disease of campo coronary vessels. Coronary artery bypass graft (CABG) with multivessel with four vessel coronary artery bypass graft. The patient had been treated supportively with intravenous heparin drip at [facility]. The patient did not receive any additional stenting. He has a known history of ischemic cardiomyopathy. Ejection fraction of 20% to 25%. He is currently DO NOT RESUSCITATE with a healthcare proxy being the . no issues on Telemetry overnight. Sick sinus syndrome, status post pacer with history of Methicillin-Susceptible Staphylococcus aureus (MSSA), the patient currently has a DO NOT RESUSCITATE. He is currently being treated with for weeks of IV antibiotics from January 30 to March 16. Aspiration pneumonia. Refer to infectious disease for antibiotic choice. The patient has been fully treated for two weeks at [facility]. Per the , "My was a very active man, before all this. He would not want this." She requested to pursue COMFORT MEASURES ONLY , and for all active interventions to be discontinued according to the pt's prior wishes. Expressive aphasia for the past four years due to advanced Parkinson's disease. Hypothyroidism. chronic Dyslipidemia. Resume statin. MDS. Resumed home medications. Disposition: DNR DNI COMFORT MEASURES ONLY. HOSPICE CONSULTED. VS, I&O, 24H, Fishbone Vital Signs/I&O Vital Signs Date Time Temp Pulse Resp B/P (MAP) Pulse Ox O2 Delivery O2 Flow Rate FiO2 03/03/19 08:00 97.4 69 22 100/56 (71) 92 2.0 I&O- Last 24 Hours up to 6 AM 03/03/19 06:00 Intake Total 810 ml Output Total 675 ml Balance 135 ml Laboratory Data 24H LABS Laboratory Tests 2 03/02/19 14:29: Immature Granulocyte % (Auto) 1.6, White Blood Count 7.4, Red Blood Count 2.87L, Hemoglobin 10.4L, Hematocrit 33.8L, Mean Corpuscular Volume 117.8H, Mean Corpuscular Hemoglobin 36.2H, Mean Corpuscular Hemoglobin Concent 30.8L, Red Cell Distribution Width 21.2H, Platelet Count 41L, Neutrophils (%) (Auto) 50.2, Lymphocytes (%) (Auto) 29.8, Monocytes (%) (Auto) 17.9H, Eosinophils (%) (Auto) 0.4, Basophils (%) (Auto) 0.1, Neutrophils # (Auto) 3.7, Lymphocytes # (Auto) 2.2, Monocytes # (Auto) 1.3H, Eosinophils # (Auto) 0.0, Basophils # (Auto) 0.0, Nucleated Red Blood Cells % (auto) 1.8H, Differential Slide Review Report, Platelet Estimate MARKED DECREASE, Immature Platelet Fraction 9.3, Anisocytosis 2+, Macrocytosis 3+, Tear Drop Cells 1+, Ovalocytes 1+, Peripheral Blood Smear Path Consult PERIPHERAL SMEAR, Erythrocyte Sedimentation Rate 74H, Prothrombin Time 27.1H, Prothromb Time International Ratio 2.45, Activated Partial Thromboplast Time 40.9H, Fibrinogen 522H, D-Dimer, Quantitative 2795.03H 03/02/19 14:30: Anion Gap 12, Glomerular Filtration Rate 53.1, Lactic Acid Level 4.0*H, Blood Urea Nitrogen 74H, Creatinine 1.36H, Sodium Level 143, Potassium Level 4.7, Chloride Level 115H, Carbon Dioxide Level 16L, Calcium Level 8.0L, Aspartate Amino Transf (AST/SGOT) 255H, Alanine Aminotransferase (ALT/SGPT) 354H, Total Creatine Kinase 79, Alkaline Phosphatase 171H, Total Bilirubin 1.1H, Total Prote in 7.2, Albumin 2.8L, Creatine Kinase MB 4.0H, Creatine Kinase MB Relative Index 5.32H, Troponin I 0.13H, C-Reactive Protein, Quantitative 11.80H, YC-Qjb-H-Type Natriuretic Peptide 81300M, Albumin/Globulin Ratio 0.64L, Thyroid Stimulating Hormone (TSH) 9.650H, Free Thyroxine Index 1.9, Thyroxine (T4) 5.7, Triiodothyronine (T3) Uptake 34, Prolactin 6.2 03/02/19 19:18: Lactic Acid Followup at 4 Hours 4.9*H 03/02/19 21:46: Urine Color YELLOW, Urine Appearance HAZY, Urine pH 5.0, Urine Specific [place] 1.010, Urine Protein 1+H, Urine Glucose (UA) NEGATIVE, Urine Ketones NEGATIVE, Urine Blood 3+H, Urine Nitrite NEGATIVE, Urine Bilirubin NEGATIVE, Urine Urobi linogen 0.2, Urine Leukocyte Esterase NEGATIVE, Urine WBC (Auto) 1, Urine RBC (Auto) 54H, Urine Hyaline Casts (Auto) 23, Urine Bacteria (Auto) 1+H, Urine Squamous Epithelial Cells 0, Urine Amorphous Sediment SMALLH, Urine Mucus (Auto) SMALL, Urine Sperm (Auto) 03/03/19 00:18: Lactic Acid Level 2.7*H 03/03/19 05:30: Immature Granulocyte % (Auto) 1.4, White Blood Count 12.0H, Red Blood Count 2.35L, Hemoglobin 8.5L, Hematocrit 27.2L, Mean Corpuscular Volume 115.7H, Mean Corpuscular Hemoglobin 36.2H, Mean Corpuscular Hemoglobin Concent 31.3L, Red Cell Distribution Width 20.9H, Platelet Count 35L, Neutrophils (%) (Auto) 78.0H, Lymphocytes (%) (Auto) 7.4L, Monocytes (%) (Auto) 12.9H, Eosinophils (%) (Auto) 0.2, Basophils (%) (Auto) 0.1, Neutrophils # (Auto) 9.3H, Lymphocytes # (Auto) 0.9L, Monocytes # (Auto) 1.5H, Eosinophils # (Auto) 0.0, Basophils # (Auto) 0.0, Nucleated Red Blood Cells % (auto) 0.4H, Anion Gap 9, Glomerular Filtration Rate 55.0, Lactic Acid Followup at 4 Hours 1.6, Blood Urea Nitrogen 73H, Creatinine 1.32H, Sodium Level 144, Potassium Level 4.1, Chloride Level 115H, Carbon Dioxide Level 20L, Calcium Level 7.5L, Random Vancomycin Level 23.4 CBC/BMP Laboratory Tests 03/02/19 14:29 Red Blood Count 2.87 L, Mean Corpuscular Volume 117.8 H, Mean Corpuscular Hemoglobin 36.2 H, Mean Corpuscular Hemoglobin Concent 30.8 L, Red Cell Distribution Width 21.2 H, Neutrophils (%) (Auto) 50.2, Lymphocytes (%) (Auto) 29.8, Monocytes (%) (Auto) 17.9 H, Eosinophils (%) (Auto) 0.4, Basophils (%) (Auto) 0.1, Neutrophils # (Auto) 3.7, Lymphocytes # (Auto) 2.2, Monocytes # (Auto) 1.3 H, Eosinophils # (Auto) 0.0, Basophils # (Auto) 0.0 03/02/19 14:30 Calcium Level 8.0 L, Aspartate Amino Transf (AST/SGOT) 255 H, Alanine Aminotransferase (ALT/SGPT) 354 H, Total Creatine Kinase 79, Alkaline Phosphata se 171 H, Total Bilirubin 1.1 H, Total Protein 7.2, Albumin 2.8 L 03/03/19 05:30 Red Blood Count 2.35 L, Mean Corpuscular Volume 115.7 H, Mean Corpuscular Hemoglobin 36.2 H, Mean Corpuscular Hemoglobin Concent 31.3 L, Red Cell Distribution Width 20.9 H, Neutrophils (%) (Auto) 78.0 H, Lymphocytes (%) (Auto) 7.4 L, Monocytes (%) (Auto) 12.9 H, Eosinophils (%) (Auto) 0.2, Basophils (%) (Auto) 0.1, Neutrophils # (Auto) 9.3 H, Lymphocytes # (Auto) 0.9 L, Monocytes # (Auto) 1.5 H, Eosinophils # (Auto) 0.0, Basophils # (Auto) 0.0, Calcium Level 7.5 L Microbiology Microbiology 03/02/19 Blood Culture, Received Pending 03/02/19 Blood Culture, Received Pending 03/02/19 Blood Culture, Received Pending MAILE DELANEY MD Mar 03, 2019 12:06
[2019-03-04] MEDS ORDERED: MORPHINE 4 MG/ML 1ML VIAL/SYRINGE (J2270) IV ONE (08:45)
[2019-03-04] MEDS: MORPHINE 4 MG/ML 1ML VIAL/SYRINGE (J2270) IV PRN ×6 (10:21→23:40)
--- NOTE | 2019-03-04 12:33 | ECHO ---
DATE OF PROCEDURE: 03/02/2019 DATE OF : 1935 AGE: 83 GENDER: Male HEIGHT: 65 inches WEIGHT: 216 pounds BODY SURFACE AREA: 2.04 meters squared INPATIENT: Progressive care unit (PCU) Room 3217 REFERRING PHYSICIAN: Dr. Alisia Eng INDICATION: Bacteremia. Coronary artery disease. Valvular heart disease. MEASUREMENTS: 2-D Measurements: RV: 5.4 cm LV: 6.4 cm Septum: 1.3 cm Posterior wall: 1.3 cm Aortic root: 3.2 cm LA: 5.3 cm LVEF: 25-30% Doppler Measurements: AV: 2.1 m/s LVOT: 0.72 m/s Mean AV gradient: 11 mmHg LVOT diameter: 2.3 cm Dimensionless index: 0.37 MV: E: 74, A: 39 , EA ratio: 1.9 Early mitral deceleration time: 123 ms E prime: 6.5, A prime: 4.5, E/E prime ratio: 11.4 PV: 0.7 m/s Pulmonary artery acceleration time: 67 ms RVSP: 56 mmHg IVC: 2.4 cm COMMENTS: Normal sinus rhythm atrial sensing and ventricular pacing. Paced QRS complexes with LBBB configuration. Occasional to frequent isolated PVCs. M-mode and two-dimensional echocardiography was performed with pulsed, continuous wave, color flow and tissue Doppler studies. Moderately dilated and mildly hypertrophied left ventricle with paradoxical septal motion and apical akinesis related to right ventricular pacing. Likely also due to right ventricular pressure overload. Moderately severe impairment of global resting systolic function. Prominently dilated left atrium with Doppler evidence of an impairment of LV diastolic relaxation with a "restrictive" pattern. Moderately dilated right heart chambers with adequate right ventricular free wall motion and Doppler evidence of at least moderately severe pulmonary hypertension. Mildly dilated inferior vena cava with absent respiratory collapse in keeping with an elevated central venous pressure/right heart failure. Moderate calcific aortic stenosis with moderate insufficiency. Normal aortic root size. Degenerative changes of his mitral valvular apparatus without inflow tract obstruction but moderately severe mitral insufficiency. Normal appearing tricuspid valvular apparatus with severe insufficiency. Pacing leads could be visualized traversing right heart structures but unable to detect other intracardiac mass or vegetation. The above test findings are similar to those described on his transesophageal echocardiogram at [facility] in [place]. If endocarditis is seriously suspect, a repeat transesophageal echocardiogram would be the investigation of choice. MTDD
--- NOTE | 2019-03-04 13:33 | IPNPDOC ---
Date Seen The patient was seen on 03/04/19. Progress Note SUBJECTIVE: Overnight, pt was much more distressed with sob, diaphoretic and pale. said IV morphine for comfort would be okay. Daughter at the bedside agrees with stepmotehr for comfort only management. Both are in agreement that no further evaluation or treatment should be done. Pt developed worsening respiratory distress, hypotension, and lactic acidosis 03/03/19. CXR: CHF. Due to hypotension, vasopressor and lasix diuresis discussed with the last night and transfer to icu for mgt of decompensated CHF, systolic dysfunction in the setting of sepsis, and moderate . Per the , "My was a very active man, before all this. He would not want this." She requested to pursue COMFORT MEASURES ONLY , and for all active interventions to be discontinued according to the pt's prior wishes. PHYSICAL EXAMINATION: VITALS PLS SEE BELOW GENERAL: The patient is nonverbal. distressed with use of accessory respiratory muscles. JVD HEART: S1, S2 with a left sternal border systolic ejection murmur. Hyperdynamic impulse of the apex. S3 LUNGS:diminished bibasilar rales GASTROINTESTINAL (GI): Soft, nontender, nondistended. Positive bowel sounds in all four quadrants. EXTREMITIES: Capillary refill less than 3 seconds. No calf tenderness. anasarca CENTRAL NERVOUS SYSTEM: The patient is nonverbal. LABORATORY DATA, IMAGING STUDIES, MICROBIOLOGY: PLS SEE BELOW 03/03/19 Echo (Dr. Monteiro) Moderately dilated and mildly hypertrophied left ventricle with paradoxical septal motion and apical akinesis related to right ventricular pacing. Likely also due to right ventricular pressure overload. Moderately severe impairment of global resting systolic function. Prominently dilated left atrium with Doppler evidence of an impairment of LV diastolic relaxation with a "restrictive" pattern. Moderately dilated right heart chambers with adequate right ventricular free wall motion and Doppler evidence of at least moderately severe pulmonary hypertension. Mildly dilated inferior vena cava with absent respiratory collapse in keeping with an elevated central venous pressure/right heart failure. Moderate calcific aortic stenosis with moderate insufficiency. Normal aortic root size. Degenerative changes of his mitral valvular apparatus without inflow tract obstruction but moderately severe mitral insufficiency. Normal appearing tricuspid valvular apparatus with severe insufficiency. Pacing leads could be visualized traversing right heart structures but unable to detect other intracardiac mass or vegetation. ASSESSMENT AND PLAN: This is an 83-year-old male with past medical history significant for advanced Parkinson's disease with expressive aphagia for the past 4 years, coronary artery disease, status post 4 vessel coronary artery bypass graft and angioplasty, multiple stent placement, non-ST segment elevation myocardial infarction (NSTEMI), dyslipidemia, septic arthritis, status post arthroplasty, hypothyroidism, cervical spine fusion, vasectomy, skin cancer removal and pacemaker implantation for sick sinus syndrome was in his usual state of health and living at home with his and usually able to walk with a walker until March 02, 2019 when the patient was unable to stand and walk at that time, otherwise called [facility] (EMS) which brought them to [facility] emergency room. At [facility], the patient was found to have a temperature of 104.5, systolic pressure in the 70s, was given rectal Tylenol and was diagnosed with sepsis and troponin leak. The patient's called 911 and the patient was taken to [facility] in [place], where he was found positive troponin, temperature of 104.5, sepsis from presumed aspiration pneumonia. The patient was then subsequently transferred to [facility] in [place] due to concerns of non-ST segment elevation myocardial infarction. At that time, the patient had a white count of 4.8, neutrophil count of 64, troponin was elevated to 5.3, with a proBNP of 98.48. Chest x-ray was suspicious for pneumonia versus congestive heart failure. 12-lead electrocardiogram (EKG) had no ST elevation. He was started on IV heparin, did receive a dose of Lasix and Rocephin and azithromycin. He was then subsequently transferred to [facility] for evaluation for acute coronary syndrome. The patient was felt to be suffering from staphylococcus aureus bacteremia with suspected troponin leak due to sepsis, as well as aspiration pneumonia. He underwent transesophageal echocardiogram (VIKAS) to rule out vegetation on 02/09/2019, which showed no evidence of vegetation of the valves in the pacemaker lead. Ejection fraction was noted to be 25% to 30%, with severe mitral aortic and tricuspid regurgitation. Transthoracic echocardiogram showed an ef1 of 20% to 25% with moderate aortic stenosis with TOMÁS 1.1 and mean gradient of 16 with moderate mitral and tricuspid insufficiency with RV pressure estimated at 46 mmHg. The patient has been nonverbal, but able to communicate with his by using yes or no questions and the patient putting a thumb's up or a thumb's down to answer. Subsequent blood culture after being started on Nafcillin and Rifampin were negative. Per infectious disease at [facility], the patient is to continue with IV cefazolin q8hrs until March 16, 2019 with weekly complete blood counts (CBCs), sedimentation rate and erythrocyte sedimentation rate. The patient was then transitioned to acute rehabilitation for strengthening and conditioning. According to the , acute rehabilitation physician had decreased the patient's medications due to increased obtundation. His Lyrica in the evening was discontinued and since the patient was on Mirapex and Ropinirole, Ropinirole was discontinued. The patient was much more lethargic and less responsive, therefore, the rehabilitation physician has resumed the Ropinirole and discontinued the Mirapex. Due to worsening pancytopenia, the patient's had requested the patient to be transferred from acute rehabilitation facility in [place] to [facility] for further evaluation. She has noted that his mentation has suffered and he is less responsive, hoping to get a neurological evaluation at [facility] [place] for his pancytopenia. She is requesting a hematology work up and referral while at the [place] [facility]. The patient's denied any recent fevers. Swallow evaluation has been done initially with mechanical soft and honey thickened, but lately, the patient is tolerating pudding thick and puree diet with clear water. Cardiogenic Shock due to low output state from severe systolic CHF exacerbation with poor EF 25% in the setting of biventricular failure with both LV dysfunction and cor pulmonale with right sided heart failure , moderately severe pulmonary hypertension, moderate Aortic Stenosis, and moderately severe mitral insufficiency. Pt was evaluated at [facility], and was not deemed to be eligible for biventricular pacer and AICD placement due to advanced parkinson's disease with expressive aphasia. 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 Acute decompensated Systolic and diastolic CHF, EF 25% with hypotension sbp80 via doppler in the setting of hypothermia, sepsis from known h/o MSSA bacteremia and recent aspiration pneumonia. Pt developed worsening respiratory distress, hypotension, and lactic acidosis yesterday. CXR: CHF. Due to hypotension, vasopressor and lasix diuresis discussed with the last night and transfer to icu for mgt of decompensated CHF, systolic dysfunction in the setting of sepsis, and moderate . Per the , "My was a very active man, before all this. He would not want this." She requested to pursue COMFORT MEASURES ONLY , and for all active interventions to be discontinued according to the pt's prior wishes.Per the , "My was a very active man, before all this. He would not want this." She requested to pursue COMFORT MEASURES ONLY , and for all active interventions to be discontinued according to the pt's prior wishes. Thrombocytopenia: with no signs of acute bleeding. thought to be due to antibiotics for MSSA bacteremia. Will check a DIC panel, peripheral blood smear, heparin-induced thrombocytopenia panel for low platelets, avoid heparin products. Compression stockings for deep vein thrombosis (DVT) prophylaxis. Sepsis due to MSSA s/p full support with iv vanco, but unable to tolerate ivfluids due to cardiogenic shock, which would require vasopressor therapy. Abnormal LFTs due to congestion from cor pulmonale and right sided heart failure with systolic and diastolic biventricular failure. with accompanying coagulopathy pt is appropriate for hospice referral. Methicillin-Susceptible Staphylococcus aureus (MSSA) bacteremia of unknown source. Thought initially to be due to aspiration pneumonia. However, culture results are still being requested. chest x-ray b/l pulmnary vascular congestion 2-D echocardiogram ordered, as well as complete blood count (CBC), metabolic panel, ESR, C-reactive protein (CRP) and blood cultures. Transesophageal echocardiogram was negative for endocarditis. 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 Advanced Parkinson's disease. The patient usually sees Dr. Walters from [facility]. Had acute rehabilitation. PMR physician has changed his medications according to the patient's . I have consulted Dr. Jama, neurologist crm solution architect to adjust the patient's medications due to worsening mental status changes. The patient is nonverbal at baseline. Mental status changes most likely due to acute infection and sepsis. Per the , "My was a very active man, before all this. He would not want this." She requested to pursue COMFORT MEASURES ONLY , and for all active interventions to be discontinued according to the pt's prior wishes. History of abnormal cardiac markers with history of atherosclerotic disease of [place] coronary vessels. Coronary artery bypass graft (CABG) with multivessel with four vessel coronary artery bypass graft. The patient had been treated supportively with intravenous heparin drip at [facility]. The patient did not receive any additional stenting. He has a known history of ischemic cardiomyopathy. Ejection fraction of 20% to 25%. He is currently DO NOT RESUSCITATE with a healthcare proxy being the . no issues on Telemetry overnight. Sick sinus syndrome, status post pacer with history of Methicillin-Susceptible Staphylococcus aureus (MSSA), the patient currently has a DO NOT RESUSCITATE. He is currently being treated with for weeks of IV antibiotics from January 30 to March 16. Aspiration pneumonia. Refer to infectious disease for antibiotic choice. The patient has been fully treated for two weeks at [facility]. Per the , "My was a very active man, before all this. He would not want this." She requested to pursue COMFORT MEASURES ONLY , and for all active interventions to be discontinued according to the pt's prior wishes. Expressive aphasia for the past four years due to advanced Parkinson's disease. Hypothyroidism. chronic Dyslipidemia. Resume statin. MDS. Resumed home medications. Disposition: DNR DNI COMFORT MEASURES ONLY. HOSPICE CONSULTED. VS, I&O, 24H, Fishbone Vital Signs/I&O Vital Signs Date Time Temp Pulse Resp B/P (MAP) Pulse Ox O2 Delivery O2 Flow Rate FiO2 03/04/19 08:57 18 03/04/19 00:00 03/03/19 08:00 97.4 69 100/56 (37) 92 I&O- Last 24 Hours up to 6 AM 03/04/19 06:00 Intake Total 0 ml Output Total 1055 ml Balance -1055 ml Laboratory Data Microbiology Microbiology 03/02/19 Blood Culture - Preliminary, Resulted No growth after 24 hours . All specim... 03/02/19 Blood Culture - Preliminary, Resulted No growth after 24 hours . All specim... 03/02/19 Blood Culture - Preliminary, Resulted No growth after 24 hours . All specim... MAILE DELANEY MD Mar 04, 2019 13:19
[2019-03-04] MEDS: LORazepam 2 MG/ML VIAL (J2060) IV PRN ×4 (15:01→23:40)
[2019-03-04] MEDS: ATROPINE SULFATE 1% OP SOLN 2 ML BTL SL PRN ×3 (17:24→23:40)
[2019-03-05] MEDS: MORPHINE 4 MG/ML 1ML VIAL/SYRINGE (J2270) IV PRN ×7 (01:00→08:36)
[2019-03-05] MEDS: LORazepam 2 MG/ML VIAL (J2060) IV PRN ×3 (02:19→07:39)
[2019-03-05] MEDS: ATROPINE SULFATE 1% OP SOLN 2 ML BTL SL PRN ×2 (03:47→07:39)
[2019-03-05] MEDS ORDERED: LORazepam 2 MG/ML VIAL (J2060) IV STA (08:42)
[2019-03-05] MEDS ORDERED: ATROPINE SULFATE 1% OP SOLN 2 ML BTL SL ONE (08:45)
[2019-03-05] MEDS ORDERED: MORPHINE 4 MG/ML 1ML VIAL/SYRINGE (J2270) IV ONE (08:45)
[2019-03-05] MEDS ORDERED: MORPHINE SULF IN 0.9% NACL 100 MG in APPROPRIATE DILUENT 1 EA IV SCH ×2 (09:00)
--- NOTE | 2019-03-05 15:48 | IPNPDOC ---
Date Seen The patient was seen on 03/05/19. Progress Note SUBJECTIVE:Family requested IV morphine gtt due toincreasing distress. Overnight, pt was much more distressed with sob, diaphoretic and pale. said IV morphine for comfort would be okay. Daughter at the bedside agrees with stepmotehr for comfort only management. Both are in agreement that no further evaluation or treatment should be done. Pt developed worsening respiratory distress, hypotension, and lactic acidosis 03/03/19. CXR: CHF. Due to hypotension, vasopressor and lasix diuresis discussed with the last night and transfer to icu for mgt of decompensated CHF, systolic dysfunction in the setting of sepsis, and moderate . Per the , "My was a very active man, before all this. He would not want this." She requested to pursue COMFORT MEASURES ONLY , and for all active interventions to be discontinued according to the pt's prior wishes. PHYSICAL EXAMINATION: VITALS PLS SEE BELOW GENERAL: The patient is nonverbal. distressed with use of accessory respiratory muscles. JVD HEART: S1, S2 with a left sternal border systolic ejection murmur. Hyperdynamic impulse of the apex. S3 LUNGS:diminished bibasilar rales GASTROINTESTINAL (GI): Soft, nontender, nondistended. Positive bowel sounds in all four quadrants. EXTREMITIES: Capillary refill less than 3 seconds. No calf tenderness. anasarca CENTRAL NERVOUS SYSTEM: The patient is nonverbal. LABORATORY DATA, IMAGING STUDIES, MICROBIOLOGY: PLS SEE BELOW 03/03/19 Echo (Dr. Monteiro) Moderately dilated and mildly hypertrophied left ventricle with paradoxical septal motion and apical akinesis related to right ventricular pacing. Likely also due to right ventricular pressure overload. Moderately severe impairment of global resting systolic function. Prominently dilated left atrium with Doppler evidence of an impairment of LV diastolic relaxation with a "restrictive" pattern. Moderately dilated right heart chambers with adequate right ventricular free wall motion and Doppler evidence of at least moderately severe pulmonary hypertension. Mildly dilated inferior vena cava with absent respiratory collapse in keeping with an elevated central venous pressure/right heart failure. Moderate calcific aortic stenosis with moderate insufficiency. Normal aortic root size. Degenerative changes of his mitral valvular apparatus without inflow tract obstruction but moderately severe mitral insufficiency. Normal appearing tricuspid valvular apparatus with severe insufficiency. Pacing leads could be visualized traversing right heart structures but unable to detect other intracardiac mass or vegetation. ASSESSMENT AND PLAN: This is an 83-year-old male with past medical history significant for advanced Parkinson's disease with expressive aphagia for the past 4 years, coronary artery disease, status post 4 vessel coronary artery bypass graft and angioplasty, multiple stent placement, non-ST segment elevation myocardial infarction (NSTEMI), dyslipidemia, septic arthritis, status post arthroplasty, hypothyroidism, cervical spine fusion, vasectomy, skin cancer removal and pacemaker implantation for sick sinus syndrome was in his usual state of health and living at home with his and usually able to walk with a walker until March 02, 2019 when the patient was unable to stand and walk at that time, otherwise called [facility] ([facility]) which brought them to [place] emergency room. At [place], the patient was found to have a temperature of 104.5, systolic pressure in the 70s, was given rectal Tylenol and was diagnosed with sepsis and troponin leak. The patient's called 911 and the patient was taken to [facility] in [place], where he was found positive troponin, temperature of 104.5, sepsis from presumed aspiration pneumonia. The patient was then subsequently transferred to [facility] in [place] due to concerns of non-ST segment elevation myocardial infarction. At that time, the patient had a white count of 4.8, neutrophil count of 64, troponin was elevated to 5.3, with a proBNP of 98.48. Chest x-ray was suspicious for pneumonia versus congestive heart failure. 12-lead electrocardiogram (EKG) had no ST elevation. He was started on IV heparin, did receive a dose of Lasix and Rocephin and azithromycin. He was then subsequently transferred to [facility] for evaluation for acute coronary syndrome. The patient was felt to be suffering from staphylococcus aureus bacteremia with suspected troponin leak due to sepsis, as well as aspiration pneumonia. He underwent transesophageal echocardiogram (VIKAS) to rule out vegetation on 02/09/2019, which showed no evidence of vegetation of the valves in the pacemaker lead. Ejection fraction was noted to be 25% to 30%, with severe mitral aortic and tricuspid regurgitation. Transthoracic echocardiogram showed an ef1 of 20% to 25% with moderate aortic stenosis with TOMÁS 1.1 and mean gradient of 16 with moderate mitral and tricuspid insufficiency with RV pressure estimated at 46 mmHg. The patient has been nonverbal, but able to communicate with his by using yes or no questions and the patient putting a thumb's up or a thumb's down to answer. Subsequent blood culture after being started on Nafcillin and Rifampin were negative. Per infectious disease at [place], the patient is to continue with IV cefazolin q8hrs until March 16, 2019 with weekly complete blood counts (CBCs), sedimentation rate and erythrocyte sedimentation rate. The patient was then transitioned to acute rehabilitation for strengthening and conditioning. According to the , acute rehabilitation physician had decreased the patient's medications due to increased obtundation. His Lyrica in the evening was discontinued and since the patient was on Mirapex and Ropinirole, Ropinirole was discontinued. The patient was much more lethargic and less responsive, therefore, the rehabilitation physician has resumed the Ropinirole and discontinued the Mirapex. Due to worsening pancytopenia, the patient's had requested the patient to be transferred from acute rehabilitation facility in [place] to [facility] for further evaluation. She has noted that his mentation has suffered and he is less responsive, hoping to get a neurological evaluation at [facility] for his pancytopenia. She is requesting a hematology work up and referral while at the [place] rehabilitation facility. The patient's denied any recent fevers. Swallow evaluation has been done initially with mechanical soft and honey thickened, but lately, the patient is tolerating pudding thick and puree diet with clear water. Cardiogenic Shock due to low output state from severe systolic CHF exacerbation with poor EF 25% in the setting of biventricular failure with both LV dysfunction and cor pulmonale with right sided heart failure , moderately severe pulmonary hypertension, moderate Aortic Stenosis, and moderately severe mitral insufficiency. Pt was evaluated at [place], and was not deemed to be eligible for biventricular pacer and AICD placement due to advanced parkinson's disease with expressive aphasia. 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 Acute decompensated Systolic and diastolic CHF, EF 25% with hypotension [id number] via doppler in the setting of hypothermia, sepsis from known h/o MSSA bacteremia and recent aspiration pneumonia. Pt developed worsening respiratory distress, hypotension, and lactic acidosis yesterday. CXR: CHF. Due to hypotension, vasopressor and lasix diuresis discussed with the last night and transfer to icu for mgt of decompensated CHF, systolic dysfunction in the setting of sepsis, and moderate . Per the , "My was a very active man, before all this. He would not want this." She requested to pursue COMFORT MEASURES ONLY , and for all active interventions to be discontinued according to the pt's prior wishes.Per the , "My was a very active man, before all this. He would not want this." She requested to pursue COMFORT MEASURES ONLY , and for all active interventions to be discontinued according to the pt's prior wishes. Thrombocytopenia: with no signs of acute bleeding. thought to be due to antibiotics for MSSA bacteremia. Will check a DIC panel, peripheral blood smear, heparin-induced thrombocytopenia panel for low platelets, avoid heparin products. Compression stockings for deep vein thrombosis (DVT) prophylaxis. Sepsis due to MSSA s/p full support with iv vanco, but unable to tolerate ivfluids due to cardiogenic shock, which would require vasopressor therapy. Abnormal LFTs due to congestion from cor pulmonale and right sided heart failure with systolic and diastolic biventricular failure. with accompanying coagulopathy pt is appropriate for hospice referral. Methicillin-Susceptible Staphylococcus aureus (MSSA) bacteremia of unknown source. Thought initially to be due to aspiration pneumonia. However, culture results are still being requested. chest x-ray b/l pulmnary vascular congestion 2-D echocardiogram ordered, as well as complete blood count (CBC), metabolic panel, ESR, C-reactive protein (CRP) and blood cultures. Transesophageal echocardiogram was negative for endocarditis. 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 Advanced Parkinson's disease. The patient usually sees Dr. Walters from [facility]. Had acute rehabilitation. PMR physician has changed his medications according to the patient's . I have consulted Dr. Jama, neurologist hydroelectric component machinist to adjust the patient's medications due to worsening mental status changes. The patient is nonverbal at baseline. Mental status changes most likely due to acute infection and sepsis. Per the , "My was a very active man, before all this. He would not want this." She requested to pursue COMFORT MEASURES ONLY , and for all active interventions to be discontinued according to the pt's prior wishes. History of abnormal cardiac markers with history of atherosclerotic disease of [place] coronary vessels. Coronary artery bypass graft (CABG) with multivessel with four vessel coronary artery bypass graft. The patient had been treated supportively with intravenous heparin drip at [facility]. The patient did not receive any additional stenting. He has a known history of ischemic cardiomyopathy. Ejection fraction of 20% to 25%. He is currently DO NOT RESUSCITATE with a healthcare proxy being the . no issues on Telemetry overnight. Sick sinus syndrome, status post pacer with history of Methicillin-Susceptible Staphylococcus aureus (MSSA), the patient currently has a DO NOT RESUSCITATE. He is currently being treated with for weeks of IV antibiotics from January 30 to March 16. Aspiration pneumonia. Refer to infectious disease for antibiotic choice. The patient has been fully treated for two weeks at [facility]. Per the , "My was a very active man, before all this. He would not want this." She requested to pursue COMFORT MEASURES ONLY , and for all active interventions to be discontinued according to the pt's prior wishes. Expressive aphasia for the past four years due to advanced Parkinson's disease. Hypothyroidism. chronic Dyslipidemia. Resume statin. MDS. Resumed home medications. Disposition: DNR DNI COMFORT MEASURES ONLY. HOSPICE CONSULTED. VS, I&O, 24H, Fishbone Vital Signs/I&O Vital Signs Date Time Temp Pulse Resp B/P (MAP) Pulse Ox O2 Delivery O2 Flow Rate FiO2 03/05/19 05:47 12 03/04/19 00:00 03/03/19 08:00 97.4 69 100/56 (44) 92 I&O- Last 24 Hours up to 6 AM 03/05/19 06:00 Intake Total 0 ml Output Total 600 ml Balance -600 ml Laboratory Data Microbiology Microbiology 03/02/19 Blood Culture - Preliminary, Resulted No Growth after 48 hours. All Specime... 03/02/19 Blood Culture - Preliminary, Resulted No Growth after 48 hours. All Specime... 03/02/19 Blood Culture - Preliminary, Resulted No Growth after 48 hours. All Specime... MAILE DELANEY MD Mar 05, 2019 06:01
--- NOTE | 2019-03-05 15:55 | DS.PDOC ---
Discharge Summary General Date of Admission Mar 02, 2019 at 11:50 Date of Discharge March 05, 2019 Discharge Summary PT AT 1124AM DNR DNI COMFORT MEASURES ONLY WITH FAMILY AT THE BEDSIDE. [place] [facility] [place]: Acute decompensated Systolic and diastolic CHF, EF 25% with cardiogenic shock with low ouput failure hypotension Thrombocytopenia/ MYELODYSPLASTIC SYNDROME Sepsis due to MSSA bacteremia Abnormal LFTs due to congestion from cor pulmonale and right sided heart failure with systolic and diastolic biventricular failure. with accompanying coagulopathy Methicillin-Susceptible Staphylococcus aureus (MSSA) bacteremia Advanced Parkinson's disease. History of abnormal cardiac markers/ demand-mediated ischemia/ sepsis induced with history of atherosclerotic disease of [place] coronary vessels. Coronary artery bypass graft (CABG) with multivessel with four vessel coronary artery bypass graft. Sick sinus syndrome, status post pacer with history of Methicillin-Susceptible Staphylococcus aureus (MSSA), Aspiration pneumonia. Expressive aphasia for the past four years due to advanced Parkinson's disease. Hypothyroidism. Dyslipidemia. DISCHARGE MEDICATIONS; NONE HISTORY OF PRESENTING ILLNESS: This is an 83-year-old male with past medical history significant for advanced Parkinson's disease with expressive aphagia for the past 4 years, coronary artery disease, status post 4 vessel coronary artery bypass graft and angioplasty, multiple stent placement, non-ST segment elevation myocardial infarction (NSTEMI), dyslipidemia, septic arthritis, status post arthroplasty, hypothyroidism, cervical spine fusion, vasectomy, skin cancer removal and pacemaker implantation for sick sinus syndrome was in his usual state of health and living at home with his and usually able to walk with a walker until March 02, 2019 when the patient was unable to stand and walk at that time, otherwise called [facility] (EMS) which brought them to [place] emergency room. At [place], the patient was found to have a temperature of 104.5, systolic pressure in the 70s, was given rectal Tylenol and was diagnosed with sepsis and troponin leak. The patient's called 911 and the patient was taken to [facility] in [place], where he was found positive troponin, temperature of 104.5, sepsis from presumed aspiration pneumonia. The patient was then subsequently transferred to [facility] in [place] due to concerns of non-ST segment elevation myocardial infarction. At that time, the patient had a white count of 4.8, neutrophil count of 64, troponin was elevated to 5.3, with a proBNP of 98.48. Chest x-ray was suspicious for pneumonia versus congestive heart failure. 12-lead electrocardiogram (EKG) had no ST elevation. He was started on IV heparin, did receive a dose of Lasix and Rocephin and azithromycin. He was then subsequently transferred to [facility] for evaluation for acute coronary syndrome. The patient was felt to be suffering from staphylococcus aureus bacteremia with suspected troponin leak due to sepsis, as well as aspiration pneumonia. He underwent transesophageal echocardiogram (VIKAS) to rule out vegetation on 02/09/2019, which showed no evidence of vegetation of the valves in the pacemaker lead. Ejection fraction was noted to be 25% to 30%, with severe mitral aortic and tricuspid regurgitation. Transthoracic echocardiogram showed an ef1 of 20% to 25% with moderate aortic stenosis with TOMÁS 1.1 and mean gradient of 16 with moderate mitral and tricuspid insufficiency with RV pressure estimated at 46 mmHg. The patient has been nonverbal, but able to communicate with his by using yes or no questions and the patient putting a thumb's up or a thumb's down to answer. Subsequent blood culture after being started on Nafcillin and Rifampin were negative. Per infectious disease at [place], the patient is to continue with IV cefazolin q8hrs until March 16, 2019 with weekly complete blood counts (CBCs), sedimentation rate and erythrocyte sedimentation rate. The patient was then transitioned to acute rehabilitation for strengthening and conditioning. According to the , acute rehabilitation physician had decreased the patient's medications due to increased obtundation. His Lyrica in the evening was discontinued and since the patient was on Mirapex and Ropinirole, Ropinirole was discontinued. The patient was much more lethargic and less responsive, therefore, the rehabilitation physician has resumed the Ropinirole and discontinued the Mirapex. Due to worsening pancytopenia, the patient's had requested the patient to be transferred from acute rehabilitation facility in [place] to [facility] for further evaluation. She has noted that his mentation has suffered and he is less responsive, hoping to get a neurological evaluation at [facility] for his pancytopenia. She is requesting a hematology work up and referral while at the [place] rehabilitation facility. The patient's denied any recent fevers. Swallow evaluation has been done initially with mechanical soft and honey thickened, but lately, the patient is tolerating pudding thick and puree diet with clear water. Cardiogenic Shock due to low output state from severe systolic CHF exacerbation with poor EF 25% in the setting of biventricular failure with both LV dysfunction and cor pulmonale with right sided heart failure , moderately severe pulmonary hypertension, moderate Aortic Stenosis, and moderately severe mitral insufficiency. Pt was evaluated at [place], and was not deemed to be eligible for biventricular pacer and AICD placement due to advanced parkinson's disease with expressive aphasia. He is currently [employer], and appropriate for Hospice referral. HOSPITAL COURSE: Acute decompensated Systolic and diastolic CHF, EF 25% with hypotension [id number] via doppler in the setting of hypothermia, sepsis from known h/o MSSA bacteremia and recent aspiration pneumonia. Pt developed worsening respiratory distress, hypotension, and lactic acidosis yesterday. CXR: CHF. Due to hypotension, vasopressor and lasix diuresis discussed with the last night and transfer to icu for mgt of decompensated CHF, systolic dysfunction in the setting of sepsis, and moderate . Per the , "My was a very active man, before all this. He would not want this." She requested to pursue COMFORT MEASURES ONLY , and for all active interventions to be discontinued according to the pt's prior wishes.Per the , "My was a very active man, before all this. He would not want this." She requested to pursue COMFORT MEASURES ONLY , and for all active interventions to be discontinued according to the pt's prior wishes. Thrombocytopenia/ MYELODYSPLASTIC SYNDROME: with no signs of acute bleeding. thought to be due to antibiotics for MSSA bacteremia. Will check a DIC panel, peripheral blood smear, heparin-induced thrombocytopenia panel for low platelets, avoid heparin products. Compression stockings for deep vein thrombosis (DVT) prophylaxis. Sepsis due to MSSA s/p full support with iv vanco, but unable to tolerate ivfluids due to cardiogenic shock, which would require vasopressor therapy. Abnormal LFTs due to congestion from cor pulmonale and right sided heart failure with systolic and diastolic biventricular failure. with accompanying coagulopathy pt is appropriate for hospice referral. Methicillin-Susceptible Staphylococcus aureus (MSSA) bacteremia of unknown source. Thought initially to be due to aspiration pneumonia. However, culture results are still being requested. chest x-ray b/l pulmnary vascular congestion 2-D echocardiogram ordered, as well as complete blood count (CBC), metabolic panel, ESR, C-reactive protein (CRP) and blood cultures. Transesophageal echocardiogram was negative for endocarditis. ID was initially consulted, but pt is currently [employer]. Advanced Parkinson's disease. The patient usually sees Dr. Walters from [facility]. Had acute rehabilitation. PMR physician has changed his medications according to the patient's . I have consulted Dr. Jama, neurologist operator weapon locating radar to adjust the patient's medications due to worsening mental status changes. The patient is nonverbal at baseline. Mental status changes most likely due to acute infection and sepsis. Per the , "My was a very active man, before all this. He would not want this." She requested to pursue COMFORT MEASURES ONLY , and for all active interventions to be discontinued according to the pt's prior wishes. History of abnormal cardiac markers/ demand-mediated ischemia/ sepsis induced with history of atherosclerotic disease of [place] coronary vessels. Coronary artery bypass graft (CABG) with multivessel with four vessel coronary artery bypass graft. The patient had been treated supportively with intravenous heparin drip at [facility]. The patient did not receive any additional stenting. He has a known history of ischemic cardiomyopathy. Ejection fraction of 20% to 25%. He is currently DO NOT RESUSCITATE with a healthcare proxy being the . no issues on Telemetry overnight. Sick sinus syndrome, status post pacer with history of Methicillin-Susceptible Staphylococcus aureus (MSSA), the patient currently has a DO NOT RESUSCITATE. He is currently being treated with for weeks of IV antibiotics from January 30 to March 16. Aspiration pneumonia. Refer to infectious disease for antibiotic choice. The patient has been fully treated for two weeks at [facility]. Per the , "My was a very active man, before all this. He would not want this." She requested to pursue COMFORT MEASURES ONLY , and for all active interventions to be discontinued according to the pt's prior wishes. Expressive aphasia for the past four years due to advanced Parkinson's disease. Hypothyroidism. chronic Dyslipidemia. Resume statin. MDS. Resumed home medications. Disposition: DNR DNI COMFORT MEASURES ONLY. PT WITH FAMILY AT THE BEDSIDE .Family requested IV morphine gtt due toincreasing distress. Overnight, pt was much more distressed with sob, diaphoretic and pale. said IV morphine for comfort would be okay. Daughter at the bedside agrees with stepmotehr for comfort only management. Both are in agreement that no further evaluation or treatment should be done. Pt developed worsening respiratory distress, hypotension, and lactic acidosis 03/03/19. CXR: CHF. Due to hypotension, vasopressor and lasix diuresis discussed with the last night and transfer to icu for mgt of decompensated CHF, systolic dysfunction in the setting of sepsis, and moderate . Per the , "My was a very active man, before all this. He would not want this." She requested to pursue COMFORT MEASURES ONLY , and for all active interventions to be discontinued according to the pt's prior wishes. LABORATORY DATA, IMAGING STUDIES, MICROBIOLOGY: PLS SEE BELOW 03/03/19 Echo (Dr. Monteiro) Moderately dilated and mildly hypertrophied left ventricle with paradoxical septal motion and apical akinesis related to right ventricular pacing. Likely also due to right ventricular pressure overload. Moderately severe impairment of global resting systolic function. Prominently dilated left atrium with Doppler evidence of an impairment of LV diastolic relaxation with a "restrictive" pattern. Moderately dilated right heart chambers with adequate right ventricular free wall motion and Doppler evidence of at least moderately severe pulmonary hypertension. Mildly dilated inferior vena cava with absent respiratory collapse in keeping with an elevated central venous pressure/right heart failure. Moderate calcific aortic stenosis with moderate insufficiency. Normal aortic root size. Degenerative changes of his mitral valvular apparatus without inflow tract obstruction but moderately severe mitral insufficiency. Normal appearing tricuspid valvular apparatus with severe insufficiency. Pacing leads could be visualized traversing right heart structures but unable to detect other intracardiac mass or vegetation. TIME SPENT ON DISCHARGE: 30 MIN Vital Signs/I&Os Vital Signs Date Time Temp Pulse Resp B/P (MAP) Pulse Ox O2 Delivery O2 Flow Rate FiO2 03/05/19 06:38 21 03/04/19 00:00 03/03/19 08:00 97.4 69 100/56 (71) 92 I&O- Last 24 Hours up to 6 AM 03/05/19 06:00 Intake Total 0 ml Output Total 850 ml Balance -850 ml Microbiology Microbiology 03/02/19 Blood Culture - Preliminary, Resulted No Growth after 48 hours. All Specime... 03/02/19 Blood Culture - Preliminary, Resulted No Growth after 72 hours. All specime... 03/02/19 Blood Culture - Preliminary, Resulted No Growth after 72 hours. All specime... Discharge Medications Scheduled Alfuzosin Hydrochloride (Alfuzosin HCl ER) 10 Mg Tab, 10 MG PO DAILY, (Reported) 1400 Ammonium Lactate (Ammonium Lactate) 12 % Cre, 1 APLCT TOP BID, (Reported) APPLY TO FEET Aspirin (Aspirin 81) 81 Mg Tab, 81 MG PO DAILY, (Reported) Atorvastatin Calcium (Atorvastatin Calcium) 20 Mg Tab, 20 MG PO QHS, (Reported) Carbidopa/Levodopa (Carbidopa/Levodopa 25-100 mg) 1 Tab Tab, 2 TAB PO QID, (Reported) 0800,1100,1400,1700 Carvedilol (Carvedilol) 12.5 Mg Tab, 12.5 MG PO BID, (Reported) Donepezil Hcl (Donepezil HCl) 10 Mg Tab, 10 MG PO QHS, (Reported) Duloxetine Hcl (Duloxetine HCl) 30 Mg Cap, 30 MG PO QAM, (Reported) Duloxetine Hcl (Duloxetine HCl) 60 Mg Cap, 60 MG PO QHS, (Reported) Levothyroxine Sodium (Synthroid) 125 Mcg Tab, 125 MCG PO DAILY, (Reported) Lisinopril (Lisinopril) 2.5 Mg Tab, 2.5 MG PO BID, (Reported) PLEASE REVIEW AT DISCHARGE Memantine Hydrochloride (Memantine HCl) 10 Mg Tab, 10 MG PO BID, (Reported) Multivitamins (Multivitamin Adults) 1 Tab Tab, 1 TAB PO DAILY, (Reported) Pantoprazole Sodium (Pantoprazole Sodium) 40 Mg Tab, 40 MG PO DAILY, (Reported) Pramipexole Dihydrochloride (Pramipexole Dihydrochlori) 0.125 Mg Tab, 0.125 MG PO BID, (Reported) Pregabalin (Lyrica) 50 Mg Cap, 50 MG PO DAILY, (Reported) Pregabalin (Lyrica) 50 Mg Cap, 100 MG PO QHS, (Reported) Ropinirole Hydrochloride (Ropinirole HCl) 0.5 Mg Tab, 0.5 MG PO BID, (Reported) Scheduled PRN Diclofenac Sodium (Diclofenac Sodium) 1 % Gel, 1 APLCT TOP TID PRN for PAIN, (Reported) APPLY TO KNEES Docusate Sodium (Colace) 100 Mg Cap, 100 MG PO DAILY PRN for CONSTIPATION, (Reported) Allergies Coded Allergies: promethazine (Verified Allergy, Severe, ANAPHYLAXIS, 03/02/19) oxycodone (Verified Adverse Reaction, Unknown, SEVERE HALLUCINATIONS, 03/02/19) MAILE DELANEY MD Mar 05, 2019 15:55
== END 2019-03-05 11:44 | disposition expired | DRG 871 ==
LOC: M MSPAV 11:50 → M PCU 15:06 → M MSPAV 03-03 18:04
PROVIDERS: ADMIT Internal Medicine; ATTEND General Practice
DX: A41.01 Sepsis due to Methicillin susceptible Staphylococcus aureus (principal); J69.0 Pneumonitis due to inhalation of food and vomit; I50.23 Acute on chronic systolic (congestive) heart failure; D61.811 Other drug-induced pancytopenia; R47.01 Aphasia; E87.2 Acidosis; D69.6 Thrombocytopenia, unspecified; G20 Parkinson's disease; I25.10 Atherosclerotic heart disease of native coronary artery without angina pectoris; Z51.5 Encounter for palliative care; R57.0 Cardiogenic shock; Z66 Do not resuscitate; I25.2 Old myocardial infarction; E78.5 Hyperlipidemia, unspecified; D46.9 Myelodysplastic syndrome, unspecified; E03.9 Hypothyroidism, unspecified; T36.6X5A Adverse effect of rifampicins, initial encounter; Z98.1 Arthrodesis status; Z85.828 Personal history of other malignant neoplasm of skin; Z95.0 Presence of cardiac pacemaker; Z95.5 Presence of coronary angioplasty implant and graft; Z98.42 Cataract extraction status, left eye; Z96.653 Presence of artificial knee joint, bilateral; Z87.891 Personal history of nicotine dependence